=== PATIENT | female | born 1945 | race Caucasian/White ===

== ENCOUNTER 2018-08-03 17:25 | Emergency (ER) | payer MEDICARE, BC ==
[2018-08-03 18:17] VITALS: BP 132/93
--- NOTE | 2018-08-03 19:25 | UC ---
Skin Complaint HPI - HPI Summary HPI Summary: 72-year-old female comes in with a chief complaint of redness and tenderness at a skin biopsy site on her right thigh. She had the biopsy yesterday today when she took the bandage off she noticed the area was read. Also slightly tender to palpation. No drainage no fever no streaking. Feels well otherwise. - History of Current Complaint Chief Complaint: UCSkin Time Seen by Provider: 08/03/18 19:18 Stated Complaint: SOFT TISSUE Pain Intensity: 4 - Allergy/Home Medications Allergies/Adverse Reactions: Allergies Allergy/AdvReac Type Severity Reaction Status Date / Time warfarin [From Coumadin] Allergy Hives Verified 08/03/18 18:07 Home Medications: Home Medications Acetaminophen [Masophen] 500 mg PO Q12HR PRN 08/03/18 [History Confirmed ] PMH/Surg Hx/FS Hx/Imm Hx Previously Healthy: Yes Cardiovascular History: Hypertension - Surgical History Surgical History: Yes Surgery Procedure, Year, and Place: R mastectomy, L mastectomy. Hip replacement. abdominal surgery. retina repair L eye. cataract- bilateral. gastric bypass. bilateral feet surgery - Family History Known Family History: Positive: Non-Contributory - Social History Alcohol Use: None Substance Use Type: None Smoking Status (MU): Former Smoker Review of Systems All Other Systems Reviewed And Are Negative: Yes Constitutional: Positive: Negative Skin: Positive: Other - see hpi Eyes: Positive: Negative ENT: Positive: Negative Respiratory: Positive: Negative Cardiovascular: Positive: Negative Gastrointestinal: Positive: Negative Motor: Positive: Negative Neurovascular: Positive: Negative Musculoskeletal: Positive: Negative Neurological: Positive: Negative Psychological: Positive: Negative Is Patient Immunocompromised?: No Physical Exam Triage Information Reviewed: Yes Appearance: Well-Appearing, No Pain Distress, Well-Nourished Vital Signs: Initial Vital Signs Temp 98.7 F 08/03/18 18:09 Pulse 56 08/03/18 18:09 Resp 18 08/03/18 18:09 BP 132/93 08/03/18 18:09 Pulse Ox 97 08/03/18 18:09 Vital Signs Reviewed: Yes Eye Exam: Normal Eyes: Positive: Conjunctiva Clear Neck exam: Normal Neck: Positive: Supple Respiratory: Positive: No respiratory distress Musculoskeletal Exam: Normal Musculoskeletal: Positive: Strength Intact, ROM Intact Neurological Exam: Normal Neurological: Positive: Alert, Muscle Tone Normal Psychological Exam: Normal Psychological: Positive: Age Appropriate Behavior Skin: Positive: Other - The right anterior thigh there is a biopsy site. Skin is clean dry and intact. There is some erythema and tenderness to palpation in the area is no streaking. Course/Dx - Diagnoses Provider Diagnosis: Cellulitis Discharge - Sign-Out/Discharge Documenting (check all that apply): Patient Departure All imaging exams completed and their final reports reviewed: No Studies - Discharge Plan Condition: Stable Disposition: HOME Prescriptions: Cephalexin CAP* [Keflex CAP*] 500 mg PO QID #40 cap Patient Education Materials: Cellulitis (ED) Referrals: Reema Martin MD [Primary Care Provider] - Additional Instructions: FOLLOW UP WITH YOUR DOCTOR. GET RECHECKED FOR ANY WORSENING OF YOUR CONDITION; SPREAD OF INFECTION, FEVER, YOU FEEL ILL OR QUESTIONS OR CONCERNS. - Billing Disposition and Condition Condition: STABLE Disposition: Home
== END 2018-08-03 19:40 | disposition home or self-care (01) ==
LOC: UCEAST 17:25
DX: L03.90 Cellulitis, unspecified (principal); I10 Essential (primary) hypertension; Z88.8 Allergy status to other drugs, medicaments and biological substances; Z87.891 Personal history of nicotine dependence
CPT/HCPCS: 99212; G0463

== ENCOUNTER 2019-02-21 09:52 | Inpatient (IN) | payer MEDICARE, BC ==
[2019-02-21] MEDS ORDERED: Naloxone* 0.4 MG/ML 1 ML VIAL ONE (10:55)
[2019-02-21] MEDS ORDERED: Flumazenil* 0.1 MG/ML 5 ML MDV ONE (10:55)
[2019-02-21] MEDS ORDERED: Midazolam* 1 MG/ML 5 ML VIAL (5 MG) ONE ×2 (10:55→13:04)
[2019-02-21] MEDS ORDERED: fentaNYL* 50 MCG/ML 2 ML VIAL (100 MCG VIAL) ONE (10:55)
[2019-02-21] MEDS ORDERED: Lidocaine 2% VISCOUS* 15 ML UDC ONE (10:55)
[2019-02-21] MEDS ORDERED: Metoprolol Tartrate IV* 1 MG/ML 5 ML VIAL ONE (12:36)
[2019-02-21] MEDS ORDERED: Metoprolol Tartrate IV* 1 MG/ML 5 ML VIAL IV ONE (12:36)
[2019-02-21] MEDS ORDERED: Diltiazem IV push/loading dose 5 MG/ML 5 ML vial (25 mg) IV SLOW PU ONE (14:08)
[2019-02-21 14:54] LABS: ABS Eosinophils 0.2 10^3/ul (0-0.6); ABS Monocytes 0.4 10^3/ul (0-0.8); ABS Neutrophils 3.1 10^3/ul (1.5-7.7); Eosinophil % 3.1 %; Hematocrit 39 % (35-47); Hemoglobin 13.1 g/dL (12.0-16.0); Lymphocyte % 34.6 %; Mean Corpuscular HGB Conc 34 g/dL (31-36); Mean Corpuscular Hemoglobin 32 pg (27-31); Mean Corpuscular Volume 94 fL (80-97); Mean Platelet Volume 8.6 fL (7.4-10.4); Nucleated Red Blood Cells % 0.1; Platelet Count 176 10^3/uL (150-450); Red Blood Count 4.15 10^6 /uL (3.70-4.87); Red Cell Distribution Width 14 % (10-15); White Blood Count 5.7 10^3/uL (3.5-10.8)
[2019-02-21] MEDS ORDERED: Diltiazem IV VIAL* 125 MG in NS 0.9% 100 ML* 100 ML IV ONE (15:00)
[2019-02-21 15:04] LABS: Albumin 3.5 g/dL (3.2-5.2); Albumin/Globulin Ratio 1.8 (1-3); BUN/Creatinine Ratio 22.5 (8-20); Calcium 8.3 mg/dL (8.6-10.3); EGFR African American 97.6 (>60); EGFR Non-African American 80.7 (>60); Magnesium 1.6 mg/dL (1.9-2.7); Potassium 3.7 mmol/L (3.5-5.0); Total Bilirubin 0.8 mg/dL (0.2-1.0); Total Protein 5.5 g/dL (6.4-8.9)
--- NOTE | 2019-02-21 15:11 | HP ---
CRITICAL CARE ADMISSION NOTE: DATE OF ADMISSION: 02/21/19 HISTORY OF PRESENT ILLNESS: The patient is a 73-year-old female, past medical history of TIA, mainta ined on Eliquis, who was undergoing a IVÁN this afternoon electively with Dr. Silvestre, looking for pot ential clot. During the course of the IVÁN, which revealed good cardiac function and no evidence of t hrombosis, the patient did develop atrial fibrillation with rapid ventricular response. She became h ypotensive, was treated appropriately with fluids and negative chronotropes and is now being admitted to the intensive care unit for a diltiazem drip and hopefully return to sinus rhythm. She did under go a couple of attempts at DC cardioversion by Dr. Silvestre while she was still asleep. Hopefully, yesi hunter will chemically convert overnight while here in the ICU. The patient is seen at the bedside in the [facility]. She is awake, still coming out of her sedation, but is largely appropriate and is able to give history. She tells me she feels fine right now that she has been on Eliquis for about 2 years, it was started when she had some TIAs and apparently has had some scattered evidence o f PAF over the interim time period. PAST MEDICAL HISTORY: Significant for the aforementioned TIA and paroxysmal atrial fibrillation. Yesi hunter also has a history of right-sided breast cancer, treated with mastectomy in 1990. She had a gastri c bypass in 2003. She also has a remote history of alcoholism. She has been sober for 29-1/2 years. She also has 80-pack years to her credit. PAST SURGICAL HISTORY: Remarkable for the aforementioned gastric bypass as well as mastectomy as wel l as herniorrhaphy in 2017, left hip replacement also in 2017, tonsillectomy as a child. She has als o had some remote back surgery. MEDICATIONS: Her medication list at home as best as I can tell includes: 1. Eliquis 5 mg b.i.d. 2. BuSpar 15 mg daily. 3. P.r.n. metoprolol. 4. Assorted multivitamins and supplements. Med rec has not yet been done today or at least I am unable to find it. ALLERGIES: She has a drug allergy to WARFARIN. FAMILY HISTORY: Her mother of metastatic breast cancer at age 55, having been diagnosed at age 46. Father at age 83 of prostate cancer. She has a sister with breast cancer in her 40s. SOCIAL HISTORY: She tells me she smoked for approximately 40 years at 2 packs per day. I see slight ly less documented in a prior consultation, but she clearly told me today it was in the range of 80-p ack years and she has been sober for 29-1/2 years with her anniversary date for 30 years being September 11 of next year. REVIEW OF SYSTEMS: As detailed in HPI. Additionally, she denies any chest pain or shortness of jerry th. Reports a good exercise tolerance. Denies any recent bleeding, focal motor weakness, visual sam nge, headache, or neck stiffness. Denies productive cough, fever, or chills. PHYSICAL EXAMINATION GENERAL: She is a well-developed, robust white female, in no acute distress. VITAL SIGNS: Temperature at 36 degrees, heart rate currently at 130 and irregular, blood pressure at 90/70, respiratory rate in the low teens, saturating the mid 90s on nasal cannula. HEENT: She is normocephalic, atraumatic. Pupils are equal and reactive to light. NECK: Supple and nontender without JVD. LUNGS: Clear bilaterally. HEART: She has S1 and S2 irregular. ABDOMEN: Soft, nontender, nondistended with positive bowel sounds. EXTREMITIES: Lower extremities are without edema. NEUROLOGIC: She is alert and oriented and grossly nonfocal. DIAGNOSTIC STUDIES/LAB DATA: She has no recent laboratory evaluations. IVÁN by Dr. Silvestre's report look good with excellent cardiac function and no evidence of clot. ASSESSMENT AND PLAN: This is a 73-year-old female with past medical history of transient ischemic at tacks, maintained on Eliquis, was undergoing elective IVÁN, developed atrial fibrillation with rapid v entricular response. She does have a history of paroxysmal atrial fibrillation. She became hemodyna mically unstable, is now being admitted to the intensive care unit for diltiazem drip and ICU observa tion. I am dosing her with her Eliquis. We will perform a full med rec. Continue the balance of her outpatient medications. We will allow her to eat and hopefully, she will convert to sinus overnight tonight. Balance of any other cardiology's specific request, I will put to Dr. Silvestre. I have wri tten for diltiazem at 10 an hour after a 15 mg bolus. We will order electrolytes as well and make de anda re those are maximized. [id number]/[facility] #: [id number]
[2019-02-21 15:38] LABS: TSH (Thyroid Stimulating Horm) 3.1 mcIU/mL (0.34-5.60)
--- NOTE | 2019-02-21 17:30 | TEE ---
*[facility]* [place] [address] Fax #: [phone] Transesophageal Echocardiogram Patient: Tasha Brandon : 1945 Study Date: 02/21/2019 Age: 73 Gender: F HR: Height: 69 in /175.3 cm BSA: 1.94 m^2 Weight: 172.6 lb /78.5 kg BMI: 25.5 kg/m^2 *Angle Shear Operator: * Rachele Lilly RD *Referring Physician: * Helga Silvestre MD *Reading Physician: * Helga Silvestre MD Indications: TIA. History: PAF,PSVT,former smoker. Conclusions Summary: - Left ventricle: Systolic function is normal. The estimated ejection fraction is 55-60%. - Right ventricle: Systolic function is normal. - Left atrium: There is no left atrial appendage thrombus. - Atrial septum: No defect or patent foramen ovale is identified. - Mitral valve: There is trace to mild regurgitation. - Aortic valve: Lambl's excressence was noted. - Tricuspid valve: There is mild regurgitation. - Pulmonary arteries: Systolic pressure is within the normal range, 32 mmHg assuming an right atrium pressure of 3 mmHg. - No clear cut cardioembolic source identified on echocardiogram anatomy. - The patient developed atrial fibrillation during the procedure with a rapid ventricular rate. Study data: Diagnostic Transesophageal Echocardiogram Consent: The risks and benefits of the procedure, including alternatives were discussed with the patient and/or their health care auto service representative and written informed consent was obtained. Procedure: Initial setup: Intravenous access was obtained. Surface ECG leads, heart rate, heart rhythm, blood pressure measurements, pulse oximetric signals, and mainstream end-tidal CO2 tracings were monitored throughout the procedure. Sedation. Moderate sedation was administered by nursing staff. History and physical as well as labs were reviewed. An oral bite block was inserted for protection of oral dentition. The patient was placed in the left lateral decubitus position. A transesophageal probe was inserted by the attending cage loader. without difficultyTransesophageal echocardiography was performed, image quality was good, and all standard views were attempted within the limitations of patient tolerance and safety. Multiple 2D, color flow Doppler and spectral Doppler images were obtained. The transesophageal probe was removed. Location: Procedure room. Patient status: Outpatient. Study completion: The patient tolerated the procedure well. There were no complications. Administered medications: Midazolam, 9mg. Midazolam, 50mcg. Rhythm: Normal sinus rhythm. A-fib noted during study. Findings Left ventricle: The cavity size is normal. Systolic function is normal. The estimated ejection fraction is 55-60%. There is no evidence of a thrombus. Right ventricle: The cavity size is normal. Systolic function is normal. Ventricular septum: The ventricular septum is normal. Left atrium: The atrium is normal in size. The appendage is well visualized and of normal size. Emptying velocity is normal. There is no left atrial appendage thrombus. No spontaneous echo contrast is observed. Right atrium: The atrium is normal in size. There is no evidence of a thrombus in the atrial cavity or appendage. Atrial septum: No defect or patent foramen ovale is identified. An agiatated saline study was performed and results were negative. Mitral valve: The valve is structurally normal. There is no evidence of a vegetation. There is no evidence of stenosis. There is trace to mild regurgitation. Aortic valve: The valve is structurally normal. The valve is trileaflet. The leaflets are normal thickness. Cusp separation is normal. There is no evidence of a vegetation. There is no evidence of stenosis. There is no regurgitation. Lambl's excressence was noted. Tricuspid valve: The valve is structurally normal. There is no evidence of a vegetation. There is no evidence of stenosis. There is mild regurgitation. Pulmonic valve: The valve is structurally normal. There is no evidence of a vegetation. There is trace regurgitation. Aorta: The aorta is well visualized and normal size. The aortic root appears normal. The aortic arch appears normal. The ascending aorta appears normal. Pericardium: There is no pericardial effusion. No evidence of pleural fluid accumulation. Pulmonary arteries: Well visualized. Systolic pressure is within the normal range, 32 mmHg assuming an right atrium pressure of 3 mmHg. No ductal shunt is identified by Doppler. Systemic veins: Well visualized. Inferior vena cava: The vessel is normal in size. Pulmonary veins: Well visualized. The Pulmonary veins appear normal. 3 out of 4 seen. Measurements Aortic valve Value Ref Tricuspid valve Value Ref Romy diam, ED 2.1 cm ---- TR peak v 2.68 m/sec <=2.8 Romy diam/bsa, ED 1.1 cm/m^2 ---- Peak RV-RA grad, S 29 mm Hg ----- Max TR mackenzie 2.68 m/sec ----- Mitral valve Value Ref Peak E 0.72 m/sec ---- Aortic root Value Ref Peak A 0.55 m/sec ---- Root diam 3.2 cm <4.1 Decel time 257 ms ---- Root max diam, ED 3.2 cm <4.1 Peak grad, D 2.1 mm Hg ---- Peak E/A ratio 1.3 ---- Ascending aorta Value Ref AAo AP diam, S 3.6 cm ----- AAo AP diam/bsa, S 1.9 cm/m^2 ----- Legend: (L) and (H) santosh values outside specified reference range. Prepared and electronically signed by Helga Silvestre MD 02/21/2019 17:30
[2019-02-21] MEDS ORDERED: Potassium Chlor TAB* 20 MEQ TAB.ER PO ONE (17:40)
[2019-02-21] MEDS ORDERED: Magnesium Sulfate 2 GM IV* 2 GM/50 ML BAG IVPB ONE (17:41)
[2019-02-21 17:47] LABS: BUN/Creatinine Ratio 19.5 (8-20); EGFR African American 82.7 (>60); EGFR Non-African American 68.3 (>60); Magnesium 1.8 mg/dL (1.9-2.7); Potassium 4.6 mmol/L (3.5-5.0)
[2019-02-21] MEDS ORDERED: NS 0.9% 1000 ML** 1,000 ML IV ONE (17:49)
--- NOTE | 2019-02-21 18:01 | PN ---
Hospitalist Progress Note Date of Service: 02/21/19 Pt not put in ICU given bed shortage. Still on dilt drip in afib with HR low 100s. Noted that patient NPO for procedure and slightly elevated BUN/Cr. Will order 1 L IVF. She is also eating now. Magnesium still low so will order Mg IV and morning labs.
[2019-02-21] MEDS: Apixaban* 5 MG TAB PO SCH (20:05)
--- NOTE | 2019-02-21 20:14 | CARD ---
CC: Dr. Reema Martin CARDIOVERSION: DATE OF PROCEDURE: 02/21/19 PROCEDURE: Electrical cardioversion. PERFORMED BY: Dr. Helga Silvestre. PREPROCEDURE DIAGNOSIS: Atrial fibrillation with rapid ventricular rate. POSTPROCEDURE DIAGNOSIS: Atrial fibrillation with rapid ventricular rate. The patient had been in sinus rhythm and undergoing a transesophageal echo when she developed atrial fibrillation with a rapid ventricular rate. The procedure was completed. She was hemodynamically st able. Suctioning did not cardiovert her. Asking the patient to cough when she was more awake did not cardiovert her. She was feeling short of breath and so the decision was made to proceed with electr ical cardioversion, as she is on chronic Eliquis. DESCRIPTION OF PROCEDURE: AP patches were put on the chest wall. All of the patient's questions wer e answered. A time-out was called. The patient received an additional 3 mg of Versed and 25 mcg of fentanyl for sedation in addition to that, that she received for the transesophageal echo. 120 joule s of energy was delivered across the chest wall and was not successful cardioverting her. Then, 200 joules was delivered across the chest well with successful cardioversion for 1 or 2 beats and then sh e went back into AFib. CONCLUSION: Unsuccessful cardioversion. The patient was hemodynamically stable throughout the procedure and during recovery. [id number]/[facility] #: [id number]
[2019-02-22] MEDS: Diltiazem TAB* 60 MG PO SCH ×3 (01:30→12:12)
[2019-02-22 05:59] LABS: EGFR African American 93.1 (>60); EGFR Non-African American 76.9 (>60); Potassium 4.4 mmol/L (3.5-5.0)
[2019-02-22] MEDS: Apixaban* 5 MG TAB PO SCH (08:26)
--- NOTE | 2019-02-22 11:04 | CONS ---
CC: Dr. Martin; Hospitalist CARDIOLOGY CONSULTATION: DATE OF CONSULT: 02/21/19 REASON FOR CONSULTATION: Paroxysmal atrial fibrillation. CHIEF COMPLAINT: Recurrent strokes. HISTORY OF PRESENT ILLNESS: Tasha Brandon is a 73-year-old woman whom I consulted on 02/12/19. She had had a history of aphasia, recurrent TIAs, had been empirically put on Eliquis with resolution. According to the patient, no clear diagnosis of the etiology of her TIAs has been made, and she was s cheduled for IVÁN on 02/21/19. During the procedure, no cardioembolic source was identified. Her matt ble study was negative, but she went into atrial fibrillation mid study. Attempts were made to cardio vert her electrically and were unsuccessful. The patient denied any awareness, palpitations, racing of the heart, or any dysrhythmia. She had ney e very mild dyspnea. She said she has a history of palpitations but they did not feel like she was f eeling now where she is unaware. The decision was made to admit her for observation. PAST MEDICAL HISTORY: The patient has a past medical history of, 1. Atrial fibrillation in 2017. 2. TIA with memory lapses, losing time, recurrent, resolved with Eliquis. 3. Breast cancer, status post mastectomy and reconstruction in 1989. 4. History of chemotherapy with CHOP. 5. She had a second primary in 2007, status post chemo and on Femara. 6. Osteoporosis. 7. Osteoarthritis. 8. Anxiety. 9. Depression. 10. Basal cell carcinoma. PAST SURGICAL HISTORY: Includes: 1. Repair of spina bifida occulta as a young child. 2. Tonsillectomy. 3. Adenoidectomy. 4. Tubal ligation. 5. Cone biopsy. 6. Modified radical mastectomy in 1990. 7. Open gastric bypass in 2003. 8. Margo-en-Y. 9. Simple mastectomy left breast in 2007. 10. Breast implants in 2009 and redo breast implants in 2013. 11. Cataract removal. 12. Hip replacement in 2017. 13. Hernia repair in 2017. 14. Retinal laser in 2017. MEDICATIONS: Outpatient medications included: 1. Eliquis 5 mg b.i.d. 2. BuSpar 15 mg b.i.d. 3. Vitamin B12. 4. MultiVites. 5. Vitamin D. 6. Calcium. 7. Tylenol. 8. Melatonin 3 mg q.h.s. 9. Prolia 60 mg/mL q. Tuesday. 10. Metoprolol 25 mg p.r.n. palpitations. ALLERGIES: The patient is allergic to COUMADIN. FAMILY HISTORY: Mother had a history of metastatic breast cancer dying at age 55, diagnosed in age 4 6. Father with a history of prostate cancer. Sister with a history of breast cancer in her 40s. SOCIAL HISTORY: The patient is , retired social worker aide. Recently returned to [place] after 2 0 years in [place]. Former smoker, stopped in 1985. Recurring alcoholic, but sober since 1989. REVIEW OF SYSTEMS: Negative for palpitations. No recent neurological changes. Occasional episodes o f low energy, arthritis. PHYSICAL EXAM: On exam, the patient is a fit-appearing older woman, in no acute distress. Vitals (s tatus post 12 mg of Versed and 75 mcg of fentanyl): Blood pressure 90/70, heart rate 130 to 150, and oxygen saturation 98% with 2 L nasal cannula. Psychologically pleasant and cooperative. Neurologic ally, awake, alert, and oriented to person, place, and time. Grossly normal sensory and motor functi on in the upper and lower extremities. Normal gait. Skin: Warm, dry. No cyanosis or rashes. HEEN T: Pupils equal and round. Mucous membranes moist. Neck: Without increased JVP. Good carotid puls es. No audible bruits. Lungs are clear with good effort. No wheezes, rales, or rhonchi. Coronary: S1, S2. Irregularly irregular and tachycardic, but no murmurs. Abdomen: Active bowel sounds. So ft, nontender. No hepatomegaly. Lower extremities: Free of edema with warm and good distal pulses. DIAGNOSTIC STUDIES/LAB DATA: IVÁN done today showed normal ventricular function, mild mitral and tri cuspid insufficiency, no cardioembolic source. Labs: White count 5.7, hematocrit 39, platelets 176. Sodium 141, potassium 3.7, chloride 111, bicar b 23, BUN 16, creatinine 0.71, glucose 87, magnesium 1.6, AST 40, ALT 40, TSH 3.10. A 12-lead ECG shows atrial fibrillation with a rapid ventricular rate of 161 beats a minute, QRS axis 0, R prime V1 with normal interventricular conduction time, [address] depression in the lateral l alfonzo. She has voltage criteria for LVH. IMPRESSION AND PLAN: In summary, Ms. Brandon is 73-year-old woman with paroxysmal atrial fibrillation and atrial fibrillation now refractory to cardioversion, admitted and we will electrolyte replace he r. We can retry in the morning and consider antiarrhythmics, perhaps sotalol if QT interval okay. S he needs to be ruled out with serial troponins as well. [id number]/[facility] #: [id number]
[2019-02-22] MEDS ORDERED: Metoprolol Succinate XL TAB* 25 MG PO SCH (13:00)
[2019-02-22 17:00] VITALS: BP 105/61
--- NOTE | 2019-02-22 22:42 | DS ---
CC: Dr. Martin; Dr. Silvestre* DISCHARGE SUMMARY: DATE OF ADMISSION: 02/21/19 DATE OF DISCHARGE: 02/22/19 PROVIDER: VIRGEN Alfaro ATTENDING PHYSICIAN WHILE IN THE HOSPITAL: Dr. Patrick Billings* (dictated by VIRGEN Alfaro). PRIMARY CARE PROVIDER: Dr. Martin. OUTPATIENT FLIGHT AGENT: Dr. Silvestre. PRIMARY DIAGNOSIS: Atrial fibrillation with rapid ventricular rate, now rate controlled. SECONDARY DIAGNOSES: 1. History of transient ischemic attack. 2. Paroxysmal atrial fibrillation. 3. History of breast cancer, status post mastectomy. 4. Status post gastric bypass. 5. History of alcohol use disorder. 6. History of anxiety. 7. History of depression. 8. History of basal cell carcinoma. HISTORY OF PRESENT ILLNESS/HOSPITAL COURSE: Please see admitting history and physical for further details written by Dr. Florencio Keating. In brief, the patient was having an outpatient transesophageal echocardiography performed by Dr. Silvestre, when the patient started having atrial fibrillation with rapid ventricular response. Cardioversion was attempted by Dr. Silvestre per her report. This cardioversion was unsuccessful. This was on 02/21/19. The patient was then given a diltiazem drip and admitted to the ICU for observation during this time. Ultimately, her diltiazem drip was completed and she was converted to p.o. diltiazem. The patient converted to sinus rhythm on the diltiazem drip and she was then rate controlled. Since the Cardizem drip, her heart rate was maintained below her rate in the 90s. On the date of discharge, the patient was asymptomatic, not complaining of chest pain, difficulty breathing, palpitations or abdominal pain. She was feeling like her normal self. The patient was initially ordered to receive p.o. Cardizem, however, this was not administered by nursing due to mild hypotension. Ultimately the patient was started on metoprolol succinate and her blood pressure maintained and then it was normotensive and the patient did continue to be in sinus rhythm with good rate control. The patient had troponins that were negative x2 on the date of discharge. This case was discussed with Dr. Silvestre and she felt that the patient was safe for discharge. PHYSICAL EXAMINATION: General: Thin elderly female, lying upright in hospital bed, appearing comfortable, in no acute distress. ENT: Mucous membranes are moist. Neck: Supple. Lungs: Clear to auscultation throughout. Cardio: Regular rate and rhythm without murmurs, rubs or gallops. Abdomen: Soft, nontender, nondistended. Extremities: No clubbing, cyanosis or edema. Neuro: Alert and oriented x3. No focal deficits. DISCHARGE PLAN: DIET: Regular diet. ACTIVITY: May return to normal activity as tolerated. The patient is advised to return to the emergency department if she is experiencing difficulty breathing, palpitations, rapid heart rate, sustained chest pain, dizziness or lightheadedness or loss of consciousness. She is advised to follow up with Dr. Silvestre in the office on 03/02/19. Additionally, she is advised to follow up with her primary care provider regarding this hospital stay. She needs to follow up with Dr. Silvestre regarding the transesophageal echocardiography that was performed that caused this rapid ventricular response. On the date of discharge, Dr. Silvestre recommended potassium and magnesium supplements and metoprolol prescribed as below. DISCHARGE MEDICATIONS: New Medications: 1. Potassium chloride 10 mEq p.o. daily. 2. Magnesium oxide 400 mg p.o. daily. 3. Metoprolol succinate 25 mg p.o. daily. Continued home medications: 1. Eliquis 5 mg p.o. b.i.d. 2. Tylenol 325 p.o. q.4 hours p.r.n. pain. 3. Melatonin 3 mg p.o. at bedtime p.r.n. insomnia. 4. Vitamin B12 of 500 mcg p.o. daily. 5. Vitamin D 4000 units p.o. b.i.d. 6. BuSpar 15 mg p.o. b.i.d. 7. Multivitamins 1 cap p.o. daily. 8. Prolia 60 mg injections every 6 months. CONDITION ON DISCHARGE: Stable. DISPOSITION: Home. TIME SPENT: Approximately 45 minutes was spent on this discharge, approximately half of this time was spent evaluating the patient and discussing the plan of care. VIRGEN ALFARO [id number]/[facility] #: [id number] [facility] CENTERDelisa
== END 2019-02-22 18:15 | disposition home or self-care (01) | DRG 310 ==
LOC: CHICATH 09:52 → MEDTELE 15:43
PROVIDERS: ADMIT Specialist; ATTEND Internal Medicine
PROC: 5A2204Z Restoration of Cardiac Rhythm, Single (ICD-10-PCS; 2019-02-21)
PROC: B24BZZ4 Ultrasonography of Heart with Aorta, Transesophageal (ICD-10-PCS; principal; 2019-02-21 11:00)
DX: I48.0 Paroxysmal atrial fibrillation (principal); M81.0 Age-related osteoporosis without current pathological fracture; M19.90 Unspecified osteoarthritis, unspecified site; F41.9 Anxiety disorder, unspecified; F32.9 Major depressive disorder, single episode, unspecified; Z96.642 Presence of left artificial hip joint; Z90.13 Acquired absence of bilateral breasts and nipples; Z88.8 Allergy status to other drugs, medicaments and biological substances; Z80.3 Family history of malignant neoplasm of breast; Z80.42 Family history of malignant neoplasm of prostate; Z85.3 Personal history of malignant neoplasm of breast; Z92.21 Personal history of antineoplastic chemotherapy; Z85.828 Personal history of other malignant neoplasm of skin; Z98.51 Tubal ligation status; Z87.891 Personal history of nicotine dependence; Z98.84 Bariatric surgery status; Z86.73 Personal history of transient ischemic attack (TIA), and cerebral infarction without residual deficits; Z79.01 Long term (current) use of anticoagulants; Z98.49 Cataract extraction status, unspecified eye
CPT/HCPCS: 36415; 80048; 80053; 82330; 83735; 84100; 84443; 84484; 85025; 92960; 93005; 93312; 93325; 99156; 99157; J2250; J2310; J3010; J3475; J3490

== ENCOUNTER 2019-07-13 16:52 | Inpatient (IN) | payer MEDICARE, BC ==
[2019-07-13] MEDS ORDERED: NS 0.9% 1000 ML** 1,000 ML IV ONE ×2 (17:18→18:47)
[2019-07-13] MEDS ORDERED: Diltiazem IV BAG* D5W Premix 125 MG/125 ML BAG IV ONE (17:19)
[2019-07-13] MEDS ORDERED: Diltiazem IV push/loading dose 5 MG/ML 5 ML vial (25 mg) IV SLOW PU ONE (17:20)
[2019-07-13 17:47] LABS: ABS Basophils 0.1 10^3/ul (0-0.2); ABS Eosinophils 0.3 10^3/ul (0-0.6); ABS Lymphocytes 2.5 10^3/ul (1.0-4.8); ABS Monocytes 0.9 10^3/ul (0-0.8); ABS Neutrophils 5.2 10^3/ul (1.5-7.7); Eosinophil % 3.6 %; Hematocrit 44 % (35-47); Hemoglobin 15.3 g/dL (12.0-16.0); Lymphocyte % 27.6 %; Mean Corpuscular HGB Conc 35 g/dL (31-36); Mean Corpuscular Hemoglobin 32 pg (27-31); Mean Corpuscular Volume 92 fL (80-97); Mean Platelet Volume 8.5 fL (7.4-10.4); Nucleated Red Blood Cells % 0.1; Platelet Count 271 10^3/uL (150-450); Red Cell Distribution Width 14 % (10-15)
[2019-07-13 17:55] LABS: INR 1.09 (0.82-1.09)
[2019-07-13 17:58] LABS: Albumin/Globulin Ratio 1.5 (1-3); Calcium 9.4 mg/dL (8.6-10.3); EGFR African American 70.6 (>60); EGFR Non-African American 58.4 (>60); Globulin 2.7 g/dL (2-4); Magnesium 1.9 mg/dL (1.9-2.7); Potassium 4.2 mmol/L (3.5-5.0); Total Bilirubin 0.5 mg/dL (0.2-1.0); Total Protein 6.7 g/dL (6.4-8.9)
--- OUTSIDE RECORDS SUMMARY | 2019-07-13 18:01 | XMS REPORT | Continuity of Care Document ---
:1945 External Reference #:[id number] Author Name Leigh Garcia N.P. (transmitted by agent of provider Meghana Castillo) Address [address] [place] [address] Care Team Providers Name Role Phone Reema Martin M.D. - Family Medicine Care Team Information Apprentice Plant Attendant [facility] - General Care Team Information Apprentice Plant Attendant [phone] Acute Care Hospital Problems Active Problems Provider Date Paroxysmal atrial fibrillation Reema Martin MD Onset: 07/18/2018 Prosthetic arthroplasty of the hip Maria Isabel Fry M.D. Onset: 01/29/2019 Strain of rotator cuff capsule Maria Isabel Fry M.D. Onset: 01/29/2019 Paroxysmal supraventricular tachycardia Helga Silvestre M.D. Onset: 02/12/2019 Ostium secundum type atrial septal defect Helga Silvestre M.D. 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 Tablets Potassium Chloride 1 by mouth every Helga Silvestre, 03/20/2019 ER day M.D. 10Meq Tablets ER Buspirone HCL take one tablet 180tabs Reema Martin MD 11/23/2018 15mg by mouth twice a Tablets day Eliquis 1 by mouth twice 180tabs Reema Martin MD 5mg Tablets a day Vitamin B-12 1 by mouth every Unknown Natural day 500mcg Tablets Multi Complete daily Unknown Capsules Tylenol 2 tablets every 4 Unknown 325mg hours as needed Capsules for pain Melatonin 1 tab by mouth Unknown 3mg every night at Capsules bedtime prn Prolia 60 mg sc q6mon Unknown 60mg/ml Solution Caltrate 600+D Plus take one Unknown Minerals capsule/tablet by mouth twice daily [id number] Chewtabs History Medications Metoprolol Succinate 1 by mouth 90tabs I48.0 Helga Silvsetre M.D. 2018 - ER every day 04/06/2019 25mg Tablets ER 24HR Medications Administered in Office Medication SIG Qnty Indications Ordering Provider Date Prolia Injection, Denosumab, 1MG Nurse Visit A 03/12/2019 Injection Prolia Injection, Denosumab, 1MG Nurse Visit [place] 08/09/2018 Injection Immunizations Description No Information Available Vital Signs Date Vital Result Comment 06/29/2019 1:38pm Height 69 inches 5'9" Weight 178.00 lb without shoes Heart Rate 63 /min BP Systolic Sitting 106 mmHg LA BP Diastolic Sitting 72 mmHg LA BP Systolic Standing 102 mmHg LA BP Diastolic Standing 70 mmHg LA BMI (Body Mass Index) 26.3 kg/m2 Ejection Fraction NONE 06/05/2019 10:54am Height 69 inches 5'9" Weight 177.00 lb Heart Rate 62 /min BP Systolic Sitting 101 mmHg BP Diastolic Sitting 64 mmHg Body Temperature 97.5 F O2 % BldC Oximetry 97 % BMI (Body Mass Index) 26.1 kg/m2 Results Test Acquired Date Facility Test Result H/L Range Note Laboratory test 06/05/2019 [facility] Vitamin D <pending> finding [address]) [place] [address] [phone] Vitamin B12 And 06/05/2019 [facility] Vitamin B12 918 pg/mL High 180-914 [address] [place] [address] [phone] Folic Acid (Folate) > 20.00 ng/mL >3.99 CBC Auto 02/21/2019 [facility] White Blood 5.7 10^3/uL Normal 3.5-10.[address] [place] [address] [phone] Red Blood Count 4.15 10^6/uL Normal 3.70-4.87 Hemoglobin 13.1 g/dL Normal 12.0-16.0 Hematocrit 39 % Normal 35-47 Mean Corpuscular Volume 94 fL Normal 80-97 Mean Corpuscular Hemoglobin 32 pg High 27-31 Mean Corpuscular HGB Conc 34 g/dL Normal 31-36 Red Cell Distribution Width 14 % Normal 10-15 Platelet Count 176 10^3/uL Normal 150-450 Mean Platelet Volume 8.6 fL Normal 7.4-10.4 Abs Neutrophils 3.1 10^3/uL Normal 1.5-7.7 Abs Lymphocytes 2.0 10^3/uL Normal 1.0-4.8 Abs Monocytes 0.4 10^3/uL Normal 0-0.8 Abs Eosinophils 0.2 10^3/uL Normal 0-0.6 Abs Basophils 0.0 10^3/uL Normal 0-0.2 Abs Nucleated RBC 0.0 10^3/uL Granulocyte % 53.8 % Lymphocyte % 34.6 % Monocyte % 7.7 % Eosinophil % 3.1 % Basophil % 0.8 % Nucleated Red Blood Cells % 0.1 Comp Metabolic 02/21/2019 [facility] Sodium 141 mmol/L Normal 135-[address] [place] [address] [phone] Potassium 3.7 mmol/L Normal 3.5-5.0 Chloride 111 mmol/L Normal 101-111 Co2 Carbon Dioxide 23 mmol/L Normal 22-32 Anion Gap 7 mmol/L Normal 2-11 Glucose 87 mg/dL Normal 70-100 Blood Urea Nitrogen 16 mg/dL Normal 6-24 Creatinine 0.71 mg/dL Normal 0.51-0.95 BUN/Creatinine Ratio 22.5 High 8-20 Calcium 8.3 mg/dL Low 8.6-10.3 Total Protein 5.5 g/dL Low 6.4-8.9 Albumin 3.5 g/dL Normal 3.2-5.2 Globulin 2.0 g/dL Normal 2-4 Albumin/Globulin Ratio 1.8 Normal 1-3 Total Bilirubin 0.80 mg/dL Normal 0.2-1.0 Alkaline Phosphatase 60 U/L Normal 34-104 Alt 40 U/L Normal 7-52 Ast 40 U/L High 13-39 Egfr Non- 80.7 >60 Egfr 97.6 >60 2 Laboratory test 02/21/2019 [facility] Magnesium 1.6 mg/dL Low 1.9-2.[address] [place] [address] [phone] TSH (Thyroid Stim Horm) 3.10 mcIU/mL Normal 0.34-5.60 Laboratory test 01/29/2019 [facility] C Reactive 1.54 mg/L Normal <8.[address] [place] [address] [phone] CBC Auto Diff 01/29/2019 [facility] White Blood 6.9 Normal 3.5 -10.[address] Count 10^3/[place] [address] [phone] Red Blood Count 4.54 10^6/uL Normal 3.70-4.87 Hemoglobin 14.8 g/dL Normal 12.0-16.0 Hematocrit 43 % Normal 35-47 Mean Corpuscular Volume 94 fL Normal 80-97 Mean Corpuscular Hemoglobin 33 pg High 27-31 Mean Corpuscular HGB Conc 35 g/dL Normal 31-36 Red Cell Distribution Width 14 % Normal 10-15 Platelet Count 210 10^3/uL Normal 150-450 Mean Platelet Volume 8.6 fL Normal 7.4-10.4 Abs Neutrophils 4.0 10^3/uL Normal 1.5-7.7 Abs Lymphocytes 2.1 10^3/uL Normal 1.0-4.8 Abs Monocytes 0.5 10^3/uL Normal 0-0.8 Abs Eosinophils 0.2 10^3/uL Normal 0-0.6 Abs Basophils 0.1 10^3/uL Normal 0-0.2 Abs Nucleated RBC 0.0 10^3/uL Granulocyte % 57.1 % Lymphocyte % 30.6 % Monocyte % 7.8 % Eosinophil % 3.3 % Basophil % 1.2 % Nucleated Red Blood Cells % 0.1 CBC Auto 01/15/2019 [facility] White Blood 6.5 10^3/uL Normal 3.5-10.[address] [place] [address] [phone] Red Blood Count 4.48 10^6/uL Normal 3.70-4.87 Hemoglobin 14.1 g/dL Normal 12.0-16.0 Hematocrit 42 % Normal 35-47 Mean Corpuscular Volume 93 fL Normal 80-97 Mean Corpuscular Hemoglobin 31 pg Normal 27-31 Mean Corpuscular HGB Conc 34 g/dL Normal 31-36 Red Cell Distribution Width 14 % Normal 10-15 Platelet Count 223 10^3/uL Normal 150-450 Mean Platelet Volume 8.8 fL Normal 7.4-10.4 Abs Neutrophils 3.2 10^3/uL Normal 1.5-7.7 Abs Lymphocytes 2.4 10^3/uL Normal 1.0-4.8 Abs Monocytes 0.6 10^3/uL Normal 0-0.8 Abs Eosinophils 0.2 10^3/uL Normal 0-0.6 Abs Basophils 0.1 10^3/uL Normal 0-0.2 Abs Nucleated RBC 0.0 10^3/uL Granulocyte % 48.8 % Lymphocyte % 37.1 % Monocyte % 9.6 % Eosinophil % 3.3 % Basophil % 1.2 % Nucleated Red Blood Cells % 0.1 Laboratory 01/15/2019 [facility] TSH (Thyroid 1.64 Normal 0.34 -5.[address] Stim Horm) mcIU/[place] [address] [phone] Basic 01/15/2019 [facility] Sodium 140 mmol/L Normal 135-[address] [place] [address] [phone] Potassium 4.3 mmol/L Normal 3.5-5.0 Chloride 105 mmol/L Normal 101-111 Co2 Carbon Dioxide 27 mmol/L Normal 22-32 Anion Gap 8 mmol/L Normal 2-11 Glucose 77 mg/dL Normal 70-100 Blood Urea Nitrogen 22 mg/dL Normal 6-24 Creatinine 1.14 mg/dL High 0.51-0.95 BUN/Creatinine Ratio 19.3 Normal 8-20 Calcium 9.5 mg/dL Normal 8.6-10.3 Egfr Non- 46.7 >60 Egfr 56.5 >60 3 Laboratory test 01/15/2019 [facility] Vitamin D 73.2 ng/mL High 20-50 [address]) [place] [address] [phone] 1 Normal Range 180 to 914 Indeterminate Range 145 to 180 Deficient Range <145 2 Because ethnic data is not always readily available, this report includes an eGFR for both -Americans and non- Americans. The National Kidney Disease Education Program (NKDEP) does not endorse the use of the MDRD equation for patients that are not between the ages of 18 and 70, are , have extremes of body size, muscle mass, or nutritional status, or are non- or non-. According to the National Kidney Foundation, irrespective of diagnosis, the stage of the disease is based on the level of kidney function: Stage Description GFR(mL/min/1.73 m(2)) 1 Kidney damage with normal or decreased GFR 90 2 Kidney damage with mild decrease in GFR 60-89 3 Moderate decrease in GFR 30-59 4 Severe decrease in GFR 15-29 5 Kidney failure <15 (or dialysis) 3 Because ethnic data is not always readily available, this report includes an eGFR for both -Americans and non- Americans. The National Kidney Disease Education Program (NKDEP) does not endorse the use of the MDRD equation for patients that are not between the ages of 18 and 70, are , have extremes of body size, muscle mass, or nutritional status, or are non- or non-. According to the National Kidney Foundation, irrespective of diagnosis, the stage of the disease is based on the level of kidney function: Stage Description GFR(mL/min/1.73 m(2)) 1 Kidney damage with normal or decreased GFR 90 2 Kidney damage with mild decrease in GFR 60-89 3 Moderate decrease in GFR 30-59 4 Severe decrease in GFR 15-29 5 Kidney failure <15 (or dialysis) 4 Total 25-Hydroxyvitamin D2 and D3 (25-OH-VitD) <10 ng/mL (severe deficiency) 10-19 ng/mL (mild to moderate deficiency) 20-50 ng/mL (optimum levels) 51-80 ng/mL (increased risk of hypercalciuria) >80 ng/mL (toxicity possible) Procedures Date Code Description Status 06/29/2019 71026 EKG Tracing & Interpretation Completed 04/12/2019 99976 EKG Tracing & Interpretation Completed 04/06/2019 14850 EKG Tracing & Interpretation Completed 03/12/2019 46911 Admin Of Inj Completed 03/08/2019 704100952 Bone Mineral Density Test Completed 03/02/2019 81081 Stress Test Completed 02/22/2019 58185 EKG, Interpretation Only Completed 02/21/2019 94169 Color Flow Doppler/Interp & Reprt Completed 02/21/2019 67338 Pulse Wave/Continuous-Interp.RPT Completed 02/21/2019 79716 Echocardiography, Transesophageal, Real Time W/Image Completed 2D W/W/O M-M 02/21/2019 21918 EKG, Interpretation Only Completed 02/21/2019 78575 Cardioversion Completed 02/12/2019 08317 EKG Tracing & Interpretation Completed 01/15/2019 94656 EKG Tracing & Interpretation Completed 10/30/2014 [id number] Colonoscopy Completed Medical Devices Description No Information Available Encounters Type Date Location Provider Dx Diagnosis Office Visit 05/03/2019 [facility] Renay Aakash, R07.89 [facility] Paroxys[facility] fibrillation Office Visit 04/12/2019 4:20p [facility] Helga Silvestre I48.0 Paroxysmal atrial Of [facility] M.D. fibrillation H54.7 Unspecified visual loss G45.9 Transient cerebral ischemic attack, unspecified Office Visit 04/06/2019 8:40a [facility] Helga Silvestre I48.0 Paroxysmal atrial Of [facility] M.D. fibrillation R19.7 Diarrhea, unspecified Z86.73 Prsnl hx of TIA (TIA), and cereb infrc w/o resid deficits Q21.1 Atrial septal defect Office Visit 03/14/2019 [facility] Marysol M81.0 Age-related 2:30p Clinic of Jude Hernandez MD osteoporosis w/o current pathological fracture Office Visit 03/07/2019 [facility] Marysol M81.0 Age-related 1:50p Clinic of Jude Hernandez MD osteoporosis w/o current pathological fracture Office Visit 02/22/2019 [facility] Cornelia I48.0 Paroxysmal atrial 10:36a [facility]oc,[facility] Morse, PAIsmaelC fibrillation Hospitalists Z86.73 Prsnl hx of TIA (TIA), and cereb infrc w/o resid deficits Z85.3 Personal history of malignant neoplasm of breast Z98.84 Bariatric surgery status Z86.59 Personal history of other mental and behavioral disorders Office Visit 02/21/2019 10:36a [facility] Florencio Keating, I48.0 Paroxysmal atrial M.D. fibrillation Z86.73 Prsnl hx of TIA (TIA), and cereb infrc w/o resid deficits Office Visit 02/21/2019 11:00a [facility] Helga Silvestre, I48.0 Paroxysmal atrial Of [facility] M.D. fibrillation Z86.73 Prsnl hx of TIA (TIA), and cereb infrc w/o resid deficits Office Visit 02/12/2019 1:00p [facility] Helga Silvestre I48.91 Unspecified atrial Cardiology Of M.D. fibrillation [facility] I47.1 Supraventricular tachycardia I69.320 Aphasia following cerebral infarction Office Visit 02/09/2019 11:15a [facility] Maria Isabel Fry, M25.552 Pain in left at [facility].D hip Z96.642 Presence of left artificial hip joint Office Visit 01/29/2019 10:30a [facility] Maria Isabel Fry M25.552 Pain in left at [facility].D. hip Z96.642 Presence of left artificial hip joint M25.512 Pain in left shoulder S46.012A Strain of musc/tend the rotator cuff of left shoulder, init M75.42 Impingement syndrome of left shoulder Office Visit 01/15/2019 1:40p [facility] Reema Martin MD M25.552 Pain in left Medicine - [facility] hip I48.0 Paroxysmal atrial fibrillation R29.6 Repeated falls M81.0 Age-related osteoporosis w/o current pathological fracture R00.1 Bradycardia, unspecified Assessments Date Code Description Provider 06/29/2019 I48.0 Paroxysmal atrial fibrillation Leigh SHoang Garcia, N.P. 06/29/2019 R06.00 Dyspnea, unspecified Leigh S. Jose, N.P. 06/29/2019 R94.31 Abnormal electrocardiogram [ECG] [EKG] Leigh Garcia, N.P. 06/29/2019 Q21.1 Atrial septal defect Leigh Garcia, N.P. 06/29/2019 Z86.73 Personal history of transient ischemic Leigh S. Jose, N.P. attack (TIA), and cerebral infarction without residual deficits 06/05/2019 Z00.00 Encounter for general adult medical Karmen Montelongo MD examination without abnormal findings 06/05/2019 I48.0 Paroxysmal atrial fibrillation Karmen Montelongo MD 06/05/2019 M81.0 Age-related osteoporosis without current Karmen Montelongo MD pathological fracture 06/05/2019 Z98.84 Bariatric surgery status Karmen Montelongo MD 06/05/2019 Z23 Encounter for immunization Karmen Montelongo MD 06/05/2019 Z85.3 Personal history of malignant neoplasm of Karmen Montelongo MD breast 06/05/2019 F41.9 Anxiety disorder, unspecified Karmen Montelongo MD 05/03/2019 R07.89 Other chest pain Renay Finn MD 05/03/2019 I48.0 Paroxysmal atrial fibrillation Renay Finn MD 04/12/2019 I48.0 Paroxysmal atrial fibrillation Helga Silvestre M.D. 04/12/2019 H54.7 Unspecified visual loss Helga Silvestre M.D. 04/12/2019 G45.9 Transient cerebral ischemic attack, Helga Silvestre M.D. unspecified 04/06/2019 I48.0 Paroxysmal atrial fibrillation Helga Silvestre M.D. 04/06/2019 R19.7 Diarrhea, unspecified Helga Silvestre M.D. 04/06/2019 Z86.73 Personal history of transient ischemic Helga Silvestre M.D. attack (TIA), and cerebral infarction without residual deficits 04/06/2019 Q21.1 Atrial septal defect Helga Silvestre M.D. 03/14/2019 M81.0 Age-related osteoporosis without current Marysol Radloff, MD pathological fracture 03/12/2019 M81.0 Age-related osteoporosis without current Nurse Visit A pathological fracture 03/07/2019 M81.0 Age-related osteoporosis without current Marysol Hernandez MD pathological fracture 03/02/2019 Z86.73 Personal history of transient ischemic Helga Silvestre M.D. attack (TIA), and cerebral infarction without residual deficits 02/22/2019 R94.31 Abnormal electrocardiogram [ECG] [EKG] Chuy Conrad M.D. 02/22/2019 I48.0 Paroxysmal atrial fibrillation Cornelia O'allan, PA-C 02/22/2019 Z86.73 Personal history of transient ischemic Cornelia O'allan, PA -C attack (TIA), and cerebral infarction without residual deficits 02/22/2019 Z85.3 Personal history of malignant neoplasm of Cornelia O'allan, PA-C breast 02/22/2019 Z98.84 Bariatric surgery status Cornelia O'allan, PA-C 02/22/2019 Z86.59 Personal history of other mental and Cornelia O'allan, PA-C behavioral disorders 02/21/2019 R00.1 Bradycardia, unspecified Chuy Conrad M.D. 02/21/2019 I48.0 Paroxysmal atrial fibrillation Florencio Keating M.D. 02/21/2019 Z86.73 Personal history of transient ischemic Florencio Keating M.D. attack (TIA), and cerebral infarction without residual deficits 02/21/2019 I48.0 Paroxysmal atrial fibrillation Helga Silvestre M.D. 02/21/2019 Z86.73 Personal history of transient ischemic Helga Silvestre M.D. attack (TIA), and cerebral infarction without residual deficits 02/12/2019 I48.91 Unspecified atrial fibrillation Helga Silvestre M.D. 02/12/2019 I47.1 Supraventricular tachycardia Helga Silvestre M.D. 02/12/2019 I69.320 Aphasia following cerebral infarction Helga Silvestre M.D. 02/09/2019 M25.552 Pain in left hip Maria Isabel Fry M.D. 02/09/2019 Z96.642 Presence of left artificial hip joint Maria Isabel Ang, M.D. 01/29/2019 M25.552 Pain in left hip Maria Isabel Fry M.D. 01/29/2019 Z96.642 Presence of left artificial hip joint Maria Isabel Fry M.D. 01/29/2019 M25.512 Pain in left shoulder Maria Isabel Fry M.D. 01/29/2019 S46.012A Strain of muscle(s) and tendon(s) of the Maria Isabel Fry M.D. rotator cuff of left shoulder, initial encounter 01/29/2019 M75.42 Impingement syndrome of left shoulder Maria Isabel Fry M.D. 01/15/2019 M25.552 Pain in left hip Reema Martin MD 01/15/2019 I48.0 Paroxysmal atrial fibrillation Reema Martin MD 01/15/2019 R29.6 Repeated falls Reema Martin MD 01/15/2019 M81.0 Age-related osteoporosis without current Reema Martin MD pathological fractu 01/15/2019 R00.1 Bradycardia, unspecified Reema Martin MD Plan of Treatment Future Appointment(s):10/29/2019 3:40 pm - Helga Silvestre M.D. at [facility]12/10/2019 10:40 am - Reema Martin MD at [facility] Internal Medicine - [facility]08/20/2019 3:00 pm - Bright Hernandez MD at [facility] Gkeolbswiny74/10/2020 - Leigh Garcia, N.P.I48.0 Paroxysmal atrial fibrillationNew Labs:Comp Metabolic Panel, Ordered: 06/29/19Magnesium, Ordered: 06/29/19Follow up:OV LS 4-6mo EKGRecommendations:I recommend purchasing Kardia by [employer] YOu can use this to check your spangler rhythm during these episodes If episodes increase in frequency/duration let us know. I will discuss with Dr. Silvestre possibility of increasing Sotalol. There is always the possibility of an ablation to try to get ride of the afib.R06.00 Dyspnea, smoinvywhuiL57.31 Abnormal electrocardiogram [ECG] [EKG]Q21.1 Atrial septal fdogivC48.73 Personal history of transient ischemic attack (TIA), and cerebral infarction without residualdeficits Functional Status Description No Information Available Mental Status Description No Information Available Referrals Refer to Reason for Referral Status Appt Date Marysol Hernandez MD Discuss bone density medication and treatment Sent 03/07 [facility] [address] [place] [address] [phone] Helga Silvestre MD pt with recent episodes of symptomatic A. Fib, Sent 2018 apparently [facility] [address] [place] [address] [phone] Maria Isabel Fry MD pt with Left total hip replacement in 2017, now Sent 01/29 complains of anterior hip pain with going up and down stairs [address] [facility] [place] [address] [place] [address] [phone]
--- OUTSIDE RECORDS SUMMARY | 2019-07-13 18:01 | XMS REPORT | Continuity of Care Document ---
:1945 External Reference #:[id number] Author Name Lennox Oswald M.D. Address [address] [place] [address] Care Team Providers Name Role Phone Reema Martin MD - Internal Medicine Care Team Information Slag Mixer Lavelle Armas M.D. - Oncology Care Team Information Slag Mixer Bright Hernandez M.D. - Pediatric Care Team Information Slag Mixer Dermatology Problems Active Problems Provider Date Atrial fibrillation Onset: Anxiety Onset: Personal history of primary malignant neoplasm of breast Onset: Social History Type Date Description Comments Sex Unknown ETOH Use Has consumed alcohol in the past Tobacco Use Start: Unknown End: Unknown Patient is a former smoker Smoking Status Reviewed: 05/22/19 Patient is a former smoker Allergies, Adverse Reactions, Alerts Active Allergies Reaction Severity Comments Date Warfarin 10/19/2018 Coumadin 10/19/2018 Seasonal Mild 05/22/2019 Medications Active Medications SIG Qnty Indications Ordering Provider Date Reema Ty MD 5mg Tablets Buspirone HCL Unknown 15mg Tablets Metoprolol Tartrate Reema Martin MD 25mg Tablets Multi Vitamin Daily Unknown Tablets Calcium Unknown Metoprolol Succinate Take One Tablet Unknown ER Once Daily 25mg Tablets ER 24HR Magnesium Unknown 500mg Tablets Prolia 1 injection every 6 Unknown 60mg/ml Soln months Prefill Syringe Vitamin B12 Unknown 3000mcg/ML Liquid Immunizations Description No Information Available Vital Signs Description No Information Available Results Description No Information Available Procedures Description No Information Available Medical Devices Description No Information Available Encounters Description No Information Available Assessments Date Code Description Provider 05/22/2019 H04.123 Dry eye syndrome of bilateral lacrimal Lennox Oswald M.D. glands 05/22/2019 H35.372 Puckering of macula, left eye Lennox Oswald M.D. 05/22/2019 H33.312 Horseshoe tear of retina without Lennox Oswald M.D. detachment, left eye Plan of Treatment Future Appointment(s):10/25/2019 9:30 am - Lennox Oswald M.D. at Jason Covarrubias MD, 05/22/2019 - Lennox Oswald M.D.H04.123 Dry eye syndrome of bilateral lacrimal glandsComments:Smoking can increase the risk of developing or worsening any eye related disease, as well as affect your overall health. If you are a smoker, we strongly recommend that you quit.If you are not a smoker , we strongly recommend that you do not start. Both of your eyes appear to be dry. Use artificial tears as directed. You can use the tears more often if you are reading a book or are on the computer,as we tend to blink less, making our eyes dry out more.[facility] offers a few items in our optical department to help alleviate dry eye symptoms. USE THE ARTIFICAL TEARS 3-4 TIMES A DAYTO BOTH EYES. SOME BRANDS I RECOMMEND ARE SYSTANE OR REFRESH.YOU CAN TRY TO USE WARM COMPRESSES(RICE BAG) FOR 3-5 MINUTES BEFORE BEDTIME FOR BOTH EYES.H35.372 Puckering of macula, left eyeComments:A Macular Pucker is a wrinkling of the retina tissue. It can cause distortion in your vision. Pleasecall the office if you notice a decrease or new distortion in your vision before then.Follow up:As scheduled You can expect to have your eyes dilated at your next visit. If Dr. Oswald orders any additional testing, it may require extra time. We recommend that you bring sunglasses, as dilation drops often make you light sensitive until they wear off. We always recommend you bring someone to drive you home if you are uncomfortable driving with your eyes dilated. If you have any questions before your next visit, feel free to call our office at .H33.256 Horseshoe tear of retina without detachment , left eyeComments:The area in the left retina that was treated for a hole/tear looks stable. I do not see any new holes or tears in your left retina at this time. If you notice any new flashes of light or a sudden onset of floaters in your vision, please give our office a call immediately to schedule an appointment. Functional Status Description No Information Available Mental Status Description No Information Available Referrals Description No Information Available
--- OUTSIDE RECORDS SUMMARY | 2019-07-13 18:01 | XMS REPORT | Continuity of Care Document ---
:1945 External Reference #:[id number] Author Name Leigh Garcia N.P. (transmitted by agent of provider Meghana Castillo) Address [address] [place] [address] Care Team Providers Name Role Phone Reema Martin M.D. - Family Medicine Care Team Information Manufacturing Engineering Manager [facility] - General Care Team Information Manufacturing Engineering Manager Acute Care Hospital Problems Active Problems Provider [...] Unknown Minerals capsule/tablet by mouth twice daily [id number] Chewtabs History Medications Metoprolol Succinate 1 by mouth 90tabs I48.0 Helga Silvestre M.D. 2018 - ER every day 04/06/2019 25mg Tablets ER 24HR Medications Administered in Office Medication SIG Qnty Indications Ordering Provider Date Prolia Injection, Denosumab, 1MG Nurse Visit A 03/12/2019 Injection Prolia Injection, Denosumab, 1MG Nurse Visit [place] 08/09/2018 Injection Immunizations Description No Information Available [...] Result H/L Range Note Laboratory test 06/05/2019 [facility] Vitamin D <pending> finding [address] Total 25(Oh) [place] [address] [phone] Vitamin B12 And 06/05/2019 [facility] Vitamin B12 918 pg/mL High 180-914 [address] [place] [address] [phone] Folic Acid (Folate) > 20.00 ng/mL >3.99 CBC Auto 02/21/2019 [facility] White Blood 5.7 10^3/uL Normal 3.5-10.[address] [place] [address] [phone] Red Blood Count 4.15 10^6/uL Normal 3.70-4.87 [...] Blood Cells % 0.1 Comp Metabolic 02/21/2019 [facility] Sodium 141 mmol/L Normal 135-[address] [place] [address] [phone] Potassium 3.7 mmol/L Normal 3.5-5.0 Chloride 111 [...] Egfr 97.6 >60 2 Laboratory test 02/21/2019 [facility] Magnesium 1.6 mg/dL Low 1.9-2.[address] [place] [address] [phone] TSH (Thyroid Stim Horm) 3.10 mcIU/mL Normal 0.34-5.60 Laboratory test 01/29/2019 [facility] C Reactive 1.54 mg/L Normal <8.[address] [place] [address] [phone] CBC Auto Diff 01/29/2019 [facility] White Blood 6.9 Normal 3.5 -10.[address] Count 10^3/[place] [address] [phone] Red Blood Count 4.54 10^6/uL Normal 3.70-4.87 [...] Blood Cells % 0.1 CBC Auto 01/15/2019 [facility] White Blood 6.5 10^3/uL Normal 3.5-10.[address] [place] [address] [phone] Red Blood Count 4.48 10^6/uL Normal 3.70-4.87 [...] Red Blood Cells % 0.1 Laboratory 01/15/2019 [facility] TSH (Thyroid 1.64 Normal 0.34 -5.[address] Stim Horm) mcIU/[place] [address] [phone] Basic 01/15/2019 [facility] Sodium 140 mmol/L Normal 135-[address] [place] [address] [phone] Potassium 4.3 mmol/L Normal 3.5-5.0 Chloride 105 mmol/L Normal 101-111 Co2 Carbon Dioxide 27 mmol/L Normal 22-32 Anion Gap 8 mmol/L Normal 2-11 Glucose 77 mg/dL Normal 70-100 Blood Urea Nitrogen 22 mg/dL Normal 6-24 Creatinine 1.14 mg/dL High 0.51-0.95 BUN/Creatinine Ratio 19.3 Normal 8-20 Calcium 9.5 mg/dL Normal 8.6-10.3 Egfr Non- 46.7 >60 Egfr 56.5 >60 3 Laboratory test 01/15/2019 [facility] Vitamin D 73.2 ng/mL High 20-50 [address] Total 25(Oh) [place] [address] [phone] 1 Normal Range 180 to 914 Indeterminate [...] possible) Procedures Date Code Description Status 06/29/2019 38639 EKG Tracing & Interpretation Completed 04/12/2019 55592 EKG Tracing & Interpretation Completed 04/06/2019 82708 EKG Tracing & Interpretation Completed 03/12/2019 11586 Admin Of Inj Completed 03/08/2019 [id number] Bone Mineral Density Test Completed 03/02/2019 08969 Stress Test Completed 02/22/2019 38115 EKG, Interpretation Only Completed 02/21/2019 31431 Color Flow Doppler/Interp & Reprt Completed 02/21/2019 95814 Pulse Wave/Continuous-Interp.RPT Completed 02/21/2019 45826 Echocardiography, Transesophageal, Real Time W/Image Completed 2D W/W/O M-M 02/21/2019 08013 EKG, Interpretation Only Completed 02/21/2019 67968 Cardioversion Completed 02/12/2019 19970 EKG Tracing & Interpretation Completed 01/15/2019 81736 EKG Tracing & Interpretation Completed 10/30/2014 [id number] Colonoscopy Completed Medical Devices Description No Information Available Encounters Type Date Location Provider Dx Diagnosis Office Visit 06/29/2019 [facility] Leigh Garcia, I48.0 Paroxysmal atrial 2:00p Of Feed Manager N.P. fibrillation R06.00 Dyspnea, unspecified R94.31 Abnormal electrocardiogram [ECG] [EKG] Q21.1 Atrial septal defect Z86.73 Prsnl hx of TIA (TIA), and cereb infrc w/o resid deficits Office Visit 05/03/2019 3:00p [facility] Renay Finn, R07.89 Other chest Medicine - [facility] MD pain I48.0 Paroxysmal atrial fibrillation Office Visit 04/12/2019 4:20p [facility] Helga Silvestre, I48.0 Paroxysmal atrial Of Feed Manager M.D. fibrillation H54.7 Unspecified visual loss G45.9 Transient cerebral ischemic attack, unspecified Office Visit 04/06/2019 8:40a [facility] Helga Silvestre, I48.0 Paroxysmal atrial Of Feed Manager [facility] M.D. fibrillation R19.7 Diarrhea, unspecified Z86.73 Prsnl hx of TIA (TIA), and cereb infrc w/o resid deficits Q21.1 Atrial septal defect Office Visit 03/14/2019 [facility] M81.0 Age-related 2:30p [facility] of [facility] MD David osteoporosis w/o current pathological fracture Office Visit 03/07/2019 [facility] M81.0 Age-related 1:50p [facility] of [facility] MD David osteoporosis w/o current pathological fracture Office Visit 02/22/2019 [facility] Cornelia I48.0 Paroxysmal atrial 10:36a dg Godoy PA-C fibrillation Hospitalists Z86.73 Prsnl hx of TIA (TIA), and cereb infrc w/o resid deficits Z85.3 Personal history of malignant neoplasm of breast Z98.84 Bariatric surgery status Z86.59 Personal history of other mental and behavioral disorders Office Visit 02/21/2019 10:36a [facility] Florencio Keating, I48.0 Paroxysmal atrial M.D. fibrillation Z86.73 Prsnl hx of TIA (TIA), and cereb infrc w/o resid deficits Office Visit 02/21/2019 11:00a [facility] Helga Silvestre, I48.0 Paroxysmal atrial Of [facility] AT [facility] M.D. fibrillation Z86.73 Prsnl hx of TIA (TIA), and cereb infrc w/o resid deficits Office Visit 02/12/2019 1:00p [facility] Helga Silvestre I48.91 Unspecified atrial Cardiology Of M.D. fibrillation [facility] I47.1 Supraventricular tachycardia I69.320 Aphasia following cerebral infarction Office Visit 02/09/2019 11:15a [facility] Maria Isabel Fry, M25.552 Pain in left at [place] M.D. hip Z96.642 Presence of left artificial hip joint Office Visit 01/29/2019 10:30a [facility] Maria Isabel Fry, M25.552 Pain in left at [place] M.D. hip Z96.642 Presence of left artificial hip joint M25.512 Pain in left shoulder S46.012A Strain of musc/tend the rotator cuff of left shoulder, init M75.42 Impingement syndrome of left shoulder Office Visit 01/15/2019 1:40p [facility] Internal Reema Martin MD M25.552 Pain in left Medicine - [facility] hip I48.0 Paroxysmal atrial fibrillation R29.6 Repeated falls M81.0 Age-related osteoporosis w/o current pathological fracture R00.1 Bradycardia, unspecified Assessments Date Code Description Provider 06/29/2019 I48.0 Paroxysmal atrial fibrillation Leigh S. Jose, N.P. 06/29/2019 R06.00 Dyspnea, unspecified Leigh S. Foster, N.P. 06/29/2019 R94.31 Abnormal electrocardiogram [ECG] [EKG] Leigh SHoang Garcia, N.P. 06/29/2019 Q21.1 Atrial septal defect Leigh SHoang Garcia, N.P. 06/29/2019 Z86.73 Personal history of [...] 03/14/2019 M81.0 Age-related osteoporosis without current Marysol Hernandez MD pathological fracture 03/12/2019 M81.0 Age-related osteoporosis without current Nurse Visit A pathological fracture 03/07/2019 M81.0 Age-related osteoporosis without current Marysol Hernandez MD pathological fracture 03/02/2019 Z86.73 Personal history of transient ischemic Helga Silvestre M.D. attack (TIA), and cerebral infarction without residual deficits 02/22/2019 R94.31 Abnormal electrocardiogram [ECG] [EKG] Chuy Conrad M.D. 02/22/2019 I48.0 Paroxysmal atrial fibrillation Cornelia O'allan PA-C 02/22/2019 Z86.73 Personal history of transient ischemic Cornelia Felice'allan PA -C attack (TIA), and cerebral infarction without residual deficits 02/22/2019 Z85.3 Personal history of malignant neoplasm of Cornelia Felice'allan PA-C breast 02/22/2019 Z98.84 Bariatric surgery status Cornelia O'allan PA-C 02/22/2019 Z86.59 Personal history of other mental and Cornelia Felice'allan, PA-C behavioral disorders 02/21/2019 R00.1 Bradycardia, unspecified [...] hip joint Maria Isabel Fry M.D. 01/29/2019 M25.552 Pain in left hip [...] 3:40 pm - Helga Silvestre M.D. at [facility]12/10/2019 10:40 am - Reema Martin MD at [facility] Internal Medicine - [facility]08/20/2019 3:00 pm - Bright Hernandez MD at [facility] Cwbsbhvpmcy01/10/2020 - Leigh Garcia N.P.I48.0 Paroxysmal atrial fibrillationNew Labs:Comp Metabolic Panel, [...] to get ride of the afib.R06.00 Dyspnea, iddrfhxqfpsF52.31 Abnormal electrocardiogram [ECG] [EKG]Q21.1 Atrial septal nspawfK88.73 Personal history of transient ischemic attack (TIA), and cerebral infarction without residualdeficits Functional Status Description No Information Available Mental Status Description No Information Available Referrals Refer to Reason for Referral Status Appt Date Marysol Hernandez MD Discuss bone density medication and treatment Sent 03/07 [facility] [address] [place] [address] [phone] Helga Silvestre MD pt with recent episodes of symptomatic A. Fib, Sent 2018 apparently RVR [address] [place] [address] [phone] Maria Isabel Fry MD pt with Left total hip replacement in 2017, now Sent 01/29 complains of anterior hip pain with going up and down stairs [address] [address] [phone]
--- OUTSIDE RECORDS SUMMARY | 2019-07-13 18:01 | XMS REPORT | Continuity of Care Document ---
:1945 External Reference #:[id number] Author Name Karmen Montelongo MD (transmitted by agent of provider Aleida Wolff) Address [address], [address] [place] [address] Care Team Providers Name Role Phone Reema Martin M.D. - Family Medicine Care Team Information Machine Maintenance Supervisor [phone] [facility] - General Care Team Information Machine Maintenance Supervisor Acute Care Hospital Problems Active Problems Provider [...] 20+pack years End: Smoker Smoking Status Reviewed: 06/05/19 Former Cigarette 20+pack years Smoker ETOH Use [...] Unknown Minerals capsule/tablet by mouth twice daily [id number] Chewtabs History Medications Metoprolol Succinate 1 by mouth 90tabs I48.0 Helga Silvestre M.D. 2018 - ER every day 04/06/2019 25mg Tablets ER 24HR Medications Administered in Office Medication SIG Qnty Indications Ordering Provider Date Prolia Injection, Denosumab, 1MG Nurse Visit A 03/12/2019 Injection Prolia Injection, Denosumab, 1MG Nurse Visit [place] 08/09/2018 Injection Immunizations Description No Information Available Vital Signs Date Vital Result Comment 06/05/2019 10:54am Height 69 inches 5'9" Weight 177.00 lb Heart Rate 62 /min BP Systolic Sitting 101 mmHg BP Diastolic Sitting 64 mmHg Body Temperature 97.5 F O2 % BldC Oximetry 97 % BMI (Body Mass Index) 26.1 kg/m2 05/03/2019 3:07pm Height 69 inches 5'9" Weight 176.00 lb Heart Rate 56 /min BP Systolic Sitting 112 mmHg Lue reg cuff BP Diastolic Sitting 66 mmHg Lue reg cuff O2 % BldC Oximetry 98 % BMI (Body Mass Index) 26.0 kg/m2 Results Test Acquired Date Facility Test Result H/L Range Note Laboratory test 02/21/2019 [facility] Magnesium 1.6 mg/dL Low 1.9-2.[address] [place] [address] [phone] TSH (Thyroid Stim Horm) 3.10 mcIU/mL Normal 0.34-5.60 Comp Metabolic 02/21/2019 [facility] Sodium 141 mmol/L Normal 135-[address] [place] [address] [phone] Potassium 3.7 mmol/L Normal 3.5-5.0 Chloride 111 [...] Egfr Non- 80.7 >60 Egfr 97.6 >60 1 CBC Auto 02/21/2019 [facility] White Blood 5.7 10^3/uL Normal 3.5-10.[address] [place] [address] [phone] Red Blood Count 4.15 10^6/uL Normal 3.70-4.87 [...] Red Blood Cells % 0.1 CBC Auto 01/29/2019 [facility] White Blood 6.9 10^3/uL Normal 3.5-10.[address] [place] [address] [phone] Red Blood Count 4.54 10^6/uL Normal 3.70-4.87 [...] Nucleated Red Blood Cells % 0.1 Laboratory test 01/29/2019 [facility] C Reactive 1.54 mg/L Normal <8.[address] [place] [address] [phone] Laboratory test 01/15/2019 [facility] Vitamin D 73.2 High 20- 50 [address] Total 25(Oh) ng/[place] [address] [phone] Basic Metabolic 01/15/2019 [facility] Sodium 140 Normal 135- [address] mmol/[place] [address] [phone] Potassium 4.3 mmol/L Normal 3.5-5.0 Chloride 105 mmol/L Normal 101-111 Co2 Carbon Dioxide 27 mmol/L Normal 22-32 Anion Gap 8 mmol/L Normal 2-11 Glucose 77 mg/dL Normal 70-100 Blood Urea Nitrogen 22 mg/dL Normal 6-24 Creatinine 1.14 mg/dL High 0.51-0.95 BUN/Creatinine Ratio 19.3 Normal 8-20 Calcium 9.5 mg/dL Normal 8.6-10.3 Egfr Non- 46.7 >60 Egfr 56.5 >60 3 Laboratory 01/15/2019 [facility] TSH (Thyroid 1.64 Normal 0.34 -5.60 test finding [address] Stim Horm) mcIU/[place] [address] [phone] CBC Auto Diff 01/15/2019 [facility] White Blood 6.5 10^3/uL Normal 3.5-10.[address] [place] [address] [phone] Red Blood Count 4.48 10^6/uL Normal 3.70-4.87 [...] % Nucleated Red Blood Cells % 0.1 1 Because ethnic data is not always readily [...] 15-29 5 Kidney failure <15 (or dialysis) 2 Total 25-Hydroxyvitamin D2 and D3 (25-OH-VitD) <10 ng/mL (severe deficiency) 10-19 ng/mL (mild to moderate deficiency) 20-50 ng/mL (optimum levels) 51-80 ng/mL (increased risk of hypercalciuria) >80 ng/mL (toxicity possible) 3 Because ethnic data is not always [...] 15-29 5 Kidney failure <15 (or dialysis) Procedures Date Code Description Status 04/12/2019 24338 EKG Tracing & Interpretation Completed 04/06/2019 57289 EKG Tracing & Interpretation Completed 03/12/2019 68051 Admin Of Inj Completed 03/08/2019 [id number] Bone Mineral Density Test Completed 03/02/2019 47835 Stress Test Completed 02/22/2019 72046 EKG, Interpretation Only Completed 02/21/2019 77486 Color Flow Doppler/Interp & Reprt Completed 02/21/2019 65944 Pulse Wave/Continuous-Interp.RPT Completed 02/21/2019 54817 Echocardiography, Transesophageal, Real Time W/Image Completed 2D W/W/O M-M 02/21/2019 83246 EKG, Interpretation Only Completed 02/21/2019 58213 Cardioversion Completed 02/12/2019 56140 EKG Tracing & Interpretation Completed 01/15/2019 11867 EKG Tracing & Interpretation Completed 10/30/2014 [id number] Colonoscopy Completed Medical Devices Description No Information Available Encounters Type Date Location Provider Dx Diagnosis Office Visit 05/03/2019 [facility] Internal Renay Finn, R07.89 Other [facility]ox[facility] fibrillation Office Visit 04/12/2019 4:20p [facility] Helga Silvestre I48.0 Paroxysmal atrial Of [facility] M.D. fibrillation H54.7 Unspecified visual loss G45.9 Transient cerebral ischemic attack, unspecified Office Visit 04/06/2019 8:40a [facility] Helga Silvestre I48.0 Paroxysmal atrial Of Furniture Repairer AT [facility] [place] M.D. fibrillation R19.7 Diarrhea, unspecified Z86.73 Prsnl hx of TIA (TIA), and cereb infrc w/o resid deficits Q21.1 Atrial septal defect Office Visit 03/14/2019 [facility] Marysol M81.0 Age-related 2:30p Clinic of Jude Hernandez MD osteoporosis w/o current pathological fracture Office Visit 03/07/2019 [facility] Marysol M81.0 Age-related 1:50p Clinic of Jude Hernandez MD osteoporosis w/o current pathological fracture Office Visit 02/22/[address] [facility] I48.0 Paroxysmal atrial 10:36a [facility]oc,[facility], PAIsmaelC fibrillation Hospitalists Z86.73 Prsnl hx of [...] w/o resid deficits Office Visit 02/21/2019 11:00a [facility] Helga Silvestre, I48.0 Paroxysmal atrial Of Furniture Repairer AT [facility] [place] M.D. fibrillation Z86.73 Prsnl hx of TIA (TIA), and cereb infrc w/o resid deficits Office Visit 02/12/2019 1:00p [facility] Helga Silvestre, I48.91 Unspecified atrial Cardiology Of M.D. fibrillation [facility] I47.1 Supraventricular tachycardia I69.320 Aphasia following cerebral infarction Office Visit 02/09/2019 11:15a [facility] Maria Isabel Fry M25.552 Pain in left at [facility] M.D. hip Z96.642 Presence of left artificial hip joint Office Visit 01/29/2019 10:30a [facility] Maria Isabel Fry M25.552 Pain in left at [facility] M.D. hip Z96.642 Presence of left artificial hip joint M25.512 Pain in left shoulder S46.012A Strain of musc/tend the rotator cuff of left shoulder, init M75.42 Impingement syndrome of left shoulder Office Visit 01/15/2019 1:40p [facility] Internal Reema Martin MD M25.552 Pain in left Medicine - [facility] hip I48.0 Paroxysmal atrial fibrillation R29.6 Repeated falls M81.0 Age-related osteoporosis w/o current pathological fracture R00.1 Bradycardia, unspecified Assessments Date Code Description Provider 06/05/2019 Z00.00 Encounter for general adult medical [...] M.D. unspecified 04/06/2019 I48.0 Paroxysmal atrial fibrillation Hegla Silvestre M.D. 04/06/2019 R19.7 Diarrhea, unspecified Helga [...] Conrad M.D. 02/22/2019 I48.0 Paroxysmal atrial fibrillation ANDREWS JesusC 02/22/2019 Z86.73 Personal history of transient ischemic VIRGEN Jesus attack (TIA), and cerebral infarction without residual deficits 02/22/2019 Z85.3 Personal history of malignant neoplasm of ANDREWS JesusC breast 02/22/2019 Z98.84 Bariatric surgery status ANDREWS JesusC 02/22/2019 Z86.59 Personal history of other mental and CorneliaANDREWS HannonC behavioral disorders 02/21/2019 R00.1 Bradycardia, unspecified Chuy [...] Reema Martin MD Plan of Treatment Future Appointment(s):12/10/2019 10:40 am - Reema Martin MD at [facility] Internal Medicine - [facility]07/05/2019 1:50 pm - Helga Silvestre M.D. at [facility]08/20/2019 3:00 pm - Bright Hernandez MD at [facility] Rmbhgbvvatt01/17/2019 - Karmen Montelongo MDZ00.00 Encounter for general adult medical examination without abnormal findingsComments:VACCINES:Flu shot every year in the fall.Tetanus: uptodate as per ptPneumonia vaccine: has received one pneumonia shot ( no record )Shingles vaccine: Please do find out if you received the new shot SCREENING: Colonoscopy: last one done in 2014 Mammogram: s/p bilateral mastectomyFollow up: F/U [address] Cintron48.0 Paroxysmal atrial fibrillationComments: Continue to f/u with Dr. Denton81.0 Age-related osteoporosis without current pathological fractureComments:Continue LttzfjT39.84 Bariatric surgery statusComments:Your basic labs are normal. Will add on Vitamin B12 and Vitamin DZ23 Encounter for immunizationNew Medication:Shingrix 50 mcg/0.5ML - inject per ridefkerW39.3 Personal history of malignant neoplasm of breastComments: Continue to f/u with Dr. ArmasF41.9 Anxiety disorder, unspecifiedComments: Continue Buspar Functional Status Description No Information Available Mental Status Description No Information Available Referrals Refer to Dr Reason for Referral Status Appt Date Marysol Hernandez MD Discuss bone density medication and treatment Sent 03/07 [facility] [address] [place] [address] [phone] Helga Silvestre MD pt with recent episodes of symptomatic A. Fib, Sent 2018 apparently RVR [address] [place] [address] [phone] Maria Isabel Fry MD pt with Left total hip replacement in 2017, now Sent 01/29 complains of anterior hip pain with going up and down stairs [address] [facility] [address] [facility] [place] [address] [phone]
[2019-07-13] MEDS ORDERED: Magnesium Oxide TAB* 400 MG PO ONE (18:15)
[2019-07-13] MEDS ORDERED: Acetaminophen TAB* 325 MG PO PRN (18:49)
[2019-07-13] MEDS ORDERED: Ondansetron INJ* 2 MG/ML VIAL IV PRN (18:49)
[2019-07-13] MEDS ORDERED: Al Hydrox/Mg Hydrox/Simet LIQ* 30 ML UDC PO PRN (18:49)
[2019-07-13] MEDS ORDERED: Sotalol TAB* 80 MG PO ONE (18:56)
--- NOTE | 2019-07-13 18:56 | ED ---
HPI Cardiac - HPI Summary HPI Summary: 73 year old F presenting to [facility] alone complains of tachycardia and 'face' pain since earlier today 07/13/2019. Patient reports face pain that radiates down to arms, pain in tongue, shallow breathing, diarrhea, cough, and a cold. Patient denies fever and vomiting. She took sanjeev-seltzer and gel caps last night for the cold. PMHx of A-fib. No PMHx of CHF or blood clots in leg. The patient rates the pain 3/10 in severity. Symptoms aggravated by nothing. Symptoms alleviated by nothing. - History of Current Complaint Chief Complaint: EDDysrhythmPalp Stated Complaint: SOB PER PT Time Seen by Provider: 07/13/19 17:15 Hx Obtained From: Patient Onset/Duration: Started Hours Ago, Still Present Pain Intensity: 3 Pain Scale Used: 0-10 Numeric Aggravating Factor(s): Nothing Alleviating Factor(s): Nothing Associated Signs and Symptoms: Positive: Shortness of Breath - shallow breaths, Cough, Other: - tachycardia, diarrhea, cold, face pain that radiates down arms and in tongue. Negative: Chest Pain, Fever, Vomiting - Allergy/Home Medications Allergies/Adverse Reactions: Allergies Allergy/AdvReac Type Severity Reaction Status Date / Time warfarin [From Coumadin] Allergy Hives Verified 07/13/19 17:05 Home Medications: Home Medications Acetaminophen TAB* [Tylenol TAB*] 325 mg PO Q4H PRN 07/13/19 [History Confirmed 07/13/19] Denosumab [Prolia] 60 mg INJ Q6M 07/13/19 [History Confirmed 07/13/19] Melatonin (NF) 3 mg PO BEDTIME PRN 07/13/19 [History Confirmed 07/13/19] Multivitamins/Minerals TAB* [Theragran/minerals TAB*] 1 tab PO DAILY 07/13/19 [ History Confirmed 07/13/19] Potassium Chlor TAB* [Klor Con ER TAB*] 10 meq PO DAILY 07/13/19 [History Confirmed 07/13/19] Sotalol TAB* [Betapace 80 MG TAB*] 40 mg PO BEDTIME 07/13/19 [History Confirmed 07/13/19] PMH/Surg Hx/FS Hx/Imm Hx Endocrine/Hematology History: Denies: Hx Diabetes Cardiovascular History: Reports: Hx Atrial Fibrillation Denies: Hx Angina Respiratory History: Denies: Hx Asthma, Hx Chronic Obstructive Pulmonary Disease (COPD) History: Denies: Hx Chronic Renal Failure Musculoskeletal History: Denies: Hx Osteoporosis Sensory History: Reports: Hx Cataracts - HX, Hx Contacts or Glasses Denies: Hx Hearing Aid Opthamlomology History: Reports: Hx Cataracts - HX, Hx Contacts or Glasses Neurological History: Reports: Hx Transient Ischemic Attacks (TIA) - Surgical History Surgery Procedure, Year, and Place: R mastectomy, L mastectomy. R Hip replacement. abdominal surgery. retina repair L eye. cataract- bilateral. gastric bypass. bilateral feet surgery Infectious Disease History: No Infectious Disease History: Denies: Traveled Outside the [place] in Last 30 Days - Family History Known Family History: Positive: Cardiac Disease - Social History Alcohol Use: Rare Alcohol Amount: QUIT FOR 29.5 YEARS Substance Use Type: Reports: None Substance Use Comment - Amount & Last Used: ETOH Smoking Status (MU): Former Smoker Review of Systems Constitutional: Other - positive - cold Sx Negative: Fever Positive: Shortness Of Breath - shallow breaths, Cough Positive: Diarrhea. Negative: Vomiting Positive: Other - pain in face that radiates down to arm and tongue All Other Systems Reviewed And Are Negative: Yes Physical Exam - Summary Physical Exam Summary: Constitutional: Well-developed, Well-nourished, Alert. (-) Distressed Skin: Warm, Dry HENT: Normocephalic; Atraumatic Eyes: Conjunctiva normal Neck: Musculoskeletal ROM normal neck. (-) JVD, (-) Stridor, (-) Tracheal deviation Cardio: tachycardic, irregular rhythm Pulmonary/Chest wall: Effort normal. (-) Respiratory distress, (-) Wheezes, (-) Rales Abd: Soft, (-) tenderness, (-) Distension, (-) Guarding, (-) Rebound Musculoskeletal: (-) Edema Lymph: (-) Cervical adenopathy Neuro: Alert, Oriented x3 Psych: Mood and affect Normal Triage Information Reviewed: Yes Vital Signs On Initial Exam: Initial Vitals Temp Pulse Resp BP Pulse Ox 97.6 F 125 19 121/76 98 07/13/19 17:03 07/13/19 17:03 07/13/19 17:03 07/13/19 17:03 07/13/19 17:03 Vital Signs Reviewed: Yes Procedures - Sedation Patient Received Moderate/Deep Sedation with Procedure: No Diagnostics - Vital Signs Vital Signs Temp Pulse Resp BP Pulse Ox 07/13/19 18:27 104 23 87/74 92 07/13/19 18:25 99 18 77/61 98 07/13/19 18:19 70 16 96/60 97 07/13/19 18:14 76 17 79/59 97 07/13/19 18:09 89 19 86/55 97 07/13/19 18:05 86 14 85/58 96 07/13/19 18:01 82 13 95 07/13/19 18:00 95 16 94/59 97 07/13/19 17:50 92 17 97/72 96 07/13/19 17:44 114 16 124/91 97 07/13/19 17:38 99 15 105/47 97 07/13/19 17:12 111 14 98 07/13/19 17:10 108 15 126/77 97 07/13/19 17:03 97.6 F 125 19 121/76 98 - Laboratory Lab Results: Lab Results 07/13/19 07/13/19 07/13/19 Range/Units 16:56 16:56 16:56 WBC 9.0 (3.5-10.8) 10^3/uL RBC 4.80 (3.70-4.87) 10^6 /uL Hgb 15.3 (12.0-16.0) g/dL Hct 44 (35-47) % MCV 92 (80-97) fL MCH 32 H (27-31) pg MCHC 35 (31-36) g/dL RDW 14 (10-15) % Plt Count 271 (150-450) 10^3/uL MPV 8.5 (7.4-10.4) fL Neut % (Auto) 57.6 % Lymph % (Auto) 27.6 % Bullock % (Auto) 10.1 % Eos % (Auto) 3.6 % Baso % (Auto) 1.1 % Absolute Neuts (auto) 5.2 (1.5-7.7) 10^3/ul Absolute Lymphs (auto) 2.5 (1.0-4.8) 10^3/ul Absolute Monos (auto) 0.9 H (0-0.8) 10^3/ul Absolute Eos (auto) 0.3 (0-0.6) 10^3/ul Absolute Basos (auto) 0.1 (0-0.2) 10^3/ul Absolute Nucleated RBC 0.0 10^3/ul Nucleated RBC % 0.1 INR (Anticoag Therapy) 1.09 (0.82-1.09) Sodium 134 L (135-145) mmol/L Potassium 4.2 (3.5-5.0) mmol/L Chloride 102 (101-111) mmol/L Carbon Dioxide 21 L (22-32) mmol/L Anion Gap 11 (2-11) mmol/L BUN 15 (6-24) mg/dL Creatinine 0.94 (0.51-0.95) mg/dL Est GFR ( Amer) 70.6 (>60) Est GFR (Non-Af Amer) 58.4 (>60) BUN/Creatinine Ratio 16.0 (8-20) Glucose 106 H (70-100) mg/dL Calcium 9.4 (8.6-10.3) mg/dL Magnesium 1.9 (1.9-2.7) mg/dL Total Bilirubin 0.50 (0.2-1.0) mg/dL AST 42 H (13-39) U/L ALT 34 (7-52) U/L Alkaline Phosphatase 73 (34-104) U/L Troponin I 0.00 (<0.03) ng/mL B-Natriuretic Peptide (<=100) pg/mL Total Protein 6.7 (6.4-8.9) g/dL Albumin 4.0 (3.2-5.2) g/dL Globulin 2.7 (2-4) g/dL Albumin/Globulin Ratio 1.5 (1-3) 07/13/19 Range/Units 17:15 WBC (3.5-10.8) 10^3/uL RBC (3.70-4.87) 10^6 /uL Hgb (12.0-16.0) g/dL Hct (35-47) % MCV (80-97) fL MCH (27-31) pg MCHC (31-36) g/dL RDW (10-15) % Plt Count (150-450) 10^3/uL MPV (7.4-10.4) fL Neut % (Auto) % Lymph % (Auto) % Bullock % (Auto) % Eos % (Auto) % Baso % (Auto) % Absolute Neuts (auto) (1.5-7.7) 10^3/ul Absolute Lymphs (auto) (1.0-4.8) 10^3/ul Absolute Monos (auto) (0-0.8) 10^3/ul Absolute Eos (auto) (0-0.6) 10^3/ul Absolute Basos (auto) (0-0.2) 10^3/ul Absolute Nucleated RBC 10^3/ul Nucleated RBC % INR (Anticoag Therapy) (0.82-1.09) Sodium (135-145) mmol/L Potassium (3.5-5.0) mmol/L Chloride (101-111) mmol/L Carbon Dioxide (22-32) mmol/L Anion Gap (2-11) mmol/L BUN (6-24) mg/dL Creatinine (0.51-0.95) mg/dL Est GFR ( Amer) (>60) Est GFR (Non-Af Amer) (>60) BUN/Creatinine Ratio (8-20) Glucose (70-100) mg/dL Calcium (8.6-10.3) mg/dL Magnesium (1.9-2.7) mg/dL Total Bilirubin (0.2-1.0) mg/dL AST (13-39) U/L ALT (7-52) U/L Alkaline Phosphatase (34-104) U/L Troponin I (<0.03) ng/mL B-Natriuretic Peptide 149 H (<=100) pg/mL Total Protein (6.4-8.9) g/dL Albumin (3.2-5.2) g/dL Globulin (2-4) g/dL Albumin/Globulin Ratio (1-3) Result Diagrams: 07/13/19 16:56 07/14/19 04:14 Lab Statement: Any lab studies that have been ordered have been reviewed, and results considered in the medical decision making process. - EKG 9997 Cardiac Rate: Tachycardia EKG Rhythm: Atrial Fibrillation Summary of EKG Findings: EKG reveals A-fib with RVR at 155 bpm, no STEMI. ED physician has reviewed and interpreted this EKG. Disposition - Course Course Of Treatment: 73 year old F presenting to [facility] complains of tachycardia and 'face' pain since earlier today 07/13/2019. Physical exam findings: heart: tachycardic, irregular rhythm. Bloodwork results with no significant abnormalities except for H MCH, H Absolute Monos (auto), L Sodium, L Carbon Dioxide, H Glucose, H AST, H B-Natriuretic Peptide. An EKG shows A-fib with RVR at 155 bpm, no STEMI. In the ED course, the patient was given Sotalol 80 mg , Dilitiazem 125 mg in 125 ml, Al Hydrox 30 ml, Magnesium Oxide 800 mg, Ns, 650 mg Acetominophen, Ondansetron 4 mg. We discussed patient care with at 1807 who recommended admission. The patient will be admitted to the hospitalist. The patient is agreeable with this plan. - Diagnoses Provider Diagnoses: Atrial fibrillation with RVR - Physician Notifications Discussed Care Of Patient With: Shelby Leonard Time Discussed With Above Provider: 18:07 Instructed by Provider To: Admit As Inpatient - Critical Care Time Critical Care Time: 30-74 min Discharge ED - Sign-Out/Discharge Documenting (check all that apply): Patient Departure - admit - Discharge Plan Condition: Stable Disposition: ADMITTED TO [facility] - Billing Disposition and Condition Condition: STABLE Disposition: Admitted to [facility] - Attestation Statements Document Initiated by Cali: Yes Documenting Scribe: Rajat Aguilera Provider For Whom Cali is Documenting (Include Credential): Graham Zambrano DO [place] Attestation: Rajat Ho scribed for Graham Zambrano DO on 07/14/19 at 0728. Scribe Documentation Reviewed: Yes Provider Attestation: The documentation as recorded by the Rajat mariano accurately reflects the service I personally performed and the decisions made by me, Graham Zambrano DO Status of Scribe Document: Viewed
[2019-07-13] MEDS ORDERED: Melatonin 3 MG TAB PO PRN (19:08)
[2019-07-13] MEDS ORDERED: Sotalol TAB* 80 MG PO SCH (21:00)
[2019-07-13] MEDS: Apixaban* 5 MG TAB PO SCH (21:25)
[2019-07-13] MEDS: busPIRone TAB* 15 MG PO SCH (21:26)
--- NOTE | 2019-07-13 22:00 | HP ---
CC: Dr. Martin; Dr. Silvestre * HISTORY AND PHYSICAL: DATE OF ADMISSION: 07/13/19 PROVIDER: VIRGEN Alfaro. ATTENDING PHYSICIAN WHILE IN THE HOSPITAL: Dr. Shelby Smith * (dictated by VIRGEN Alfaro). PRIMARY CARE PROVIDER: Dr. Martin. OUTPATIENT MARKETING SERVICES COORDINATOR: Dr. Silvestre. CHIEF COMPLAINT: Shortness of breath with palpitations and facial/jaw pain. HISTORY OF PRESENT ILLNESS: Tasha Brandon is a 73-year-old white female with past medical history significant for paroxysmal AFib, TIAs, right breast cancer , anxiety, osteoporosis, osteoarthritis, who presented to the emergency department with symptomatic palpitations. The patient felt sudden onset of palpitations and then additionally developed shortness of breath, jaw pain which radiates into the face and tongue as well as down to bilateral arms. She also later got up to feed her cat and found herself to be lightheaded. She denies ever having chest pain or pressure. She does mention that she had an upper respiratory infection and today is day 10 and she does feel like she has greatly improved. Has denied fever or chills. She has an intermittent cough, which is not productive and endorses that she has been taking her medications daily. She denies abdominal pain, nausea, vomiting. Now that she is in the emergency department with improved control of her heart rate, she has found that her symptoms have overall improved other than she does still have some tongue pain, which is not typical for her. EMERGENCY DEPARTMENT COURSE: When the patient arrived to the emergency department, the patient was found to be in AFib with RVR, initially with heart rate in the 140s and started on Cardizem drip. At time of my evaluation, the patient's heart rates ranged from low 100s to up to 120, but was becoming hypotensive and additionally to this point a second liter of IV normal saline was ordered. Hospitalists were then asked to evaluate the patient for admission. PAST MEDICAL HISTORY: 1. Paroxysmal AFib, on Eliquis. 2. TIA. 3. Right breast cancer, status post mastectomy. 4. Anxiety. 5. Osteoporosis. PAST SURGICAL HISTORY: 1. Mastectomy to both breasts. 2. Breast reconstruction. 3. Bilateral cataract surgeries. 4. Left hip replacement. 5. Laser surgery of her torn retina of left eye. 6. Excision of basal cell carcinoma to right thigh. 7. Bilateral feet bunionectomies. 8. Tubal ligation. 9. Tonsillectomy and adenoidectomy. HOME MEDICATIONS: 1. Sotalol 40 mg p.o. at bedtime. 2. Vitamin B12 1000 mcg p.o. daily. 3. Multivitamin 1 tab p.o. daily. 4. Melatonin 3 mg p.o. at bedtime p.r.n. insomnia. 6. Tylenol 325 mg p.o. q.4 hours p.r.n. pain. 7. Vitamin D 400 units p.o. at bedtime. 8. Prolia 60 mg injection every 6 months. 9. BuSpar 15 mg p.o. b.i.d. 10. Calcium chloride 10 mEq p.o. daily. 11. Eliquis 5 mg p.o. b.i.d. ALLERGIES: The patient has a reaction of hives to COUMADIN. FAMILY HISTORY: The patient's brother had a history of CHF and COPD and ultimately of complications related to COPD. Her father of complications related to heart failure. He also has history of prostate cancer. Her mother of breast cancer. SOCIAL HISTORY: The patient lives alone. She has healthcare proxy of her sister, Nguyen Gonzalez, phone number [phone]. She has a distant history of alcohol use and has no recent alcohol use and denies illicit drug use as well as tobacco use. She has previous smoking history of approximately 2 packs per day from ages 12 to 40. REVIEW OF SYSTEMS: An 11-point review of systems was completed and all pertinent positives and negatives are above in the HPI and all other systems are negative. PHYSICAL EXAMINATION GENERAL: Thin, elderly white female, lying up in her hospital bed appearing comfortable, in no acute distress. VITAL SIGNS: Initial vital signs in the emergency department: Temperature 97.6 , heart rate 125, respiratory rate 19, oxygen saturation 98% on room air, blood pressure 121/76. HEENT: Eyes: PERRL. Sclerae anicteric. ENT: Mucous membranes moist. NECK: Supple without JVD. LUNGS: Clear to auscultation throughout. CARDIO: Tachycardic rate with regular rhythm consistent with AFib with RVR. No appreciable murmurs, rubs, or gallops. ABDOMEN: Abdomen is soft, nontender, nondistended. EXTREMITIES: No clubbing, cyanosis or edema. NEURO: The patient is alert and oriented x3. No focal deficits. Able to move all extremities. SKIN: Warm, dry and intact. DIAGNOSTIC STUDIES/LAB DATA: EKG: Heart rate 155 beats per minute. No visible P waves, normal axis. Due to her heart rate, unable to appreciate any evidence of ischemia. White blood cell count 9, hemoglobin 15.3, hematocrit 44, platelet count 271. INR 1.09. Sodium 134, potassium 4.2, chloride 102, carbon dioxide 21, anion gap of 11, BUN 15, creatinine 0.94, glucose 106, calcium 9.4, magnesium 1.9, total bili 0.5, AST 42, ALT 34, alk phos 73, BNP 149, troponin 0. ASSESSMENT AND PLAN: Tasha Brandon is a 73-year-old white female with past medical history significant for paroxysmal atrial fibrillation, on anticoagulation; history of right breast cancer, status post mastectomy; history of transient ischemic attacks; anxiety; and osteoporosis; who presented to the emergency department due to symptomatic chest palpitations and found to be in atrial fibrillation with rapid ventricular response. The patient will be inpatient for: 1. Atrial fibrillation with rapid ventricular response. The patient presented with symptomatic palpitations and was found to be in atrial fibrillation with rapid ventricular response based on EKG. She has been started on a Cardizem drip and this has improved her symptomatically, but does still appear to be in a rapid rate, which is greatly improved as she is now fluctuating between the one-teens and low 120s, but is at times hypotensive with this measurement. The patient will be admitted to ICU due to her actively needing titration on her Cardizem drip. I have ordered another bolus of IV fluids due to this. I discussed the case with Dr. Silvestre who knows the patient from the outpatient phase and who is additionally polymerization kettle operator this evening. She recommends increasing her sotalol to 80 mg p.o. b.i.d. I am going to give the 80 mg dose early today in the emergency department. Dr. Silvestre additionally recommended making the patient n.p.o. after midnight in case cardioversion is needed. Additionally, I will do a chest x-ray and check her TSH. I have given a small 800 mg dose of magnesium oxide to keep her magnesium over 2. Her potassium is already over 4 and we will continue to monitor this. She will be admitted on telemetry. Of note, she does have a 3-day quality assurance monitor final in place at this time. I will continue her Eliquis as well. 2. Anxiety. I will continue the patient's home BuSpar. 3. History of transient ischemic attack. It does not appear the patient is on aspirin or statin. 4. Osteoporosis. The patient gets denosumab every 6 months. There is no need to continue this at this time. 5. DVT prophylaxis. The patient is on Eliquis. She has a DVT risk score of over 2. 6. FEN: The patient may have regular unrestricted diet and she will be n.p.o. after midnight. Electrolytes as previously discussed. Fluid status as previously discussed. 7. Code Status: The patient is full code. This case has been discussed with my attending, Dr. Shelby Smith and she agrees with this plan of care. VIRGEN ALFARO [id number]/[facility] #: [id number] JONELLE
[2019-07-14 04:43] LABS: BUN/Creatinine Ratio 15.2 (8-20); Calcium 8.1 mg/dL (8.6-10.3); EGFR African American 86.3 (>60); EGFR Non-African American 71.3 (>60); Magnesium 1.8 mg/dL (1.9-2.7); Potassium 4.3 mmol/L (3.5-5.0)
[2019-07-14] MEDS ORDERED: Magnesium Sulfate 1 GM IV* 1 GM/100 ML BAG IV ONE (05:39)
[2019-07-14] MEDS: busPIRone TAB* 15 MG PO SCH (08:29)
[2019-07-14] MEDS: Apixaban* 5 MG TAB PO SCH (08:29)
[2019-07-14] MEDS ORDERED: Sotalol TAB* 80 MG PO SCH (09:00)
[2019-07-14] MEDS ORDERED: Potassium Chlor TAB* 10 MEQ TAB.ER PO SCH ×2 (09:00→21:00)
[2019-07-14] MEDS ORDERED: Cyanocobalamin TAB* 500 MCG PO SCH (09:00)
[2019-07-14 16:11] VITALS: BP 90/54
--- NOTE | 2019-07-14 16:47 | CONSULT ---
Subjective Date of Service: 07/14/19 - CC: face pain, heart racing, SOB found in Afib, RVR Interval History: About 12:45 PM yesterday pt noted racing heart, face pain, SOB. No EtOH, caffiene, no problems sleeping. Feels great now s/p chemical CV. Pt states was taking Sotalol 40 mg once daily only. Family History: Unchanged from Admission Social History: Unchanged from Admission - nurse, former smoker. Past Medical History: Unchanged from Admission - + PAF, COPD, hx gastric bypass sx for obeisity, recurrent TIA's past. Medications Active Medications: Acetaminophen (Tylenol Tab*) 650 mg PO Q4H PRN PRN Reason: MILD PAIN or TEMP > 100.4 Al Hydrox/Mg Hydrox/Simethicone (Maalox Plus*) 30 ml PO Q6H PRN PRN Reason: INDIGESTION Apixaban (Eliquis*) 5 mg PO BID [facility] Last Admin: 07/14/19 08:29 Dose: 5 mg Buspirone HCl (Buspar Tab *) 15 mg PO BID [facility] Last Admin: 07/14/19 08:29 Dose: 15 mg Cyanocobalamin (Vitamin B12 Tab*) 1,000 mcg PO DAILY [facility] Last Admin: 07/14/19 08:29 Dose: 1,000 mcg Melatonin (Melatonin) 3 mg PO BEDTIME PRN PRN Reason: INSOMNIA Potassium Chloride (Klor Con Er Tab*) 10 meq PO 2100 [facility] Sotalol HCl (Betapace Tab*) 80 mg PO BID [facility] Last Admin: 07/14/19 08:29 Dose: 80 mg Home Medications: Apixaban* [Eliquis*] 5 mg PO BID 07/12/18 [History Confirmed 07/13/19] busPIRone TAB* [Buspar TAB *] 15 mg PO BID 07/12/18 [History Confirmed 07/13/19] Cholecalciferol TAB* [Vitamin D TAB*] 400 unit PO BID 02/20/19 [History Confirmed 07/13/19] Cyanocobalamin TAB* [Vitamin B12 TAB*] 1,000 mcg PO DAILY 02/20/19 [History Confirmed 07/13/19] Acetaminophen TAB* [Tylenol TAB*] 325 mg PO Q4H PRN 07/13/19 [History Confirmed 07/13/19] Denosumab [Prolia] 60 mg INJ Q6M 07/13/19 [History Confirmed 07/13/19] Melatonin (NF) 3 mg PO BEDTIME PRN 07/13/19 [History Confirmed 07/13/19] Multivitamins/Minerals TAB* [Theragran/minerals TAB*] 1 tab PO DAILY 07/13/19 [ History Confirmed 07/13/19] Potassium Chlor TAB* [Klor Con ER TAB 10 MEQ*] 10 meq PO DAILY 07/13/19 [ History Confirmed 07/13/19] Sotalol TAB* [Betapace 80 MG TAB*] 80 mg PO BID #60 tab 07/14/19 [Rx] Review of Systems - Measurements Intake and Output: Intake and Output Last 24 Hours 07/12/19 07/13/19 07/14/19 07/15/19 04:59 04:59 04:59 04:59 Intake Total 1000 Balance 1000 Weight 175 lb Intake: IV Fluids 1000 - Review of Systems General Comments: No CP, no orthopnea, no recent infections. no decline in exercise capactiy prior to onset of symptoms. No recent GI/ problems, Review of Systems Statement: All other review of systems negative, unless stated above. Objective Vital Signs: Temp Pulse Resp BP Pulse Ox 98 F 61 14 90/54 98 07/14/19 15:23 07/14/19 15:23 07/14/19 15:23 07/14/19 15:23 07/14/19 15:23 Initial Vital Signs Temp 97.6 F 07/13/19 17:03 Pulse 125 07/13/19 17:03 Resp 19 07/13/19 17:03 BP 121/76 07/13/19 17:03 Pulse Ox 98 07/13/19 17:03 Oxygen Devices in Use Now: None Appearance: Older woman, well nourished walking on floor in [facility]. Eyes: No Scleral Icterus Ears/Nose/Mouth/Throat: Clear Oropharnyx, Mucous Membranes Moist Neck: NL Appearance and Movements; NL JVP, No Thyroid Enlargement, Masses Respiratory: Symmetrical Chest Expansion and Respiratory Effort, Clear to Auscultation Cardiovascular: NL Sounds; No Murmurs; No JVD, RRR Abdominal: NL Sounds; No Tenderness; No Distention - hear bowel sounds in chest/ SS. Extremities: No Edema Skin: No Rash or Ulcers Neurological: Alert and Oriented x 3, NL Muscle Strength and Tone Lines/Tubes/Other Access: Clean, Dry and Intact Peripheral IV Laboratory Results: 07/13/19 16:56 07/13/19 16:56 INR (Anticoag Therapy) 1.09 (0.82-1.09) 07/13/19 16:56 Total Bilirubin 0.50 mg/dL (0.2-1.0) 07/13/19 16:56 AST 42 U/L (13-39) H 07/13/19 16:56 ALT 34 U/L (7-52) 07/13/19 16:56 Alkaline Phosphatase 73 U/L (34-104) 07/13/19 16:56 B-Natriuretic Peptide 149 pg/mL (<=100) H 07/13/19 17:15 Total Protein 6.7 g/dL (6.4-8.9) 07/13/19 16:56 Albumin 4.0 g/dL (3.2-5.2) 07/13/19 16:56 Globulin 2.7 g/dL (2-4) 07/13/19 16:56 Albumin/Globulin Ratio 1.5 (1-3) 07/13/19 16:56 TSH 3.76 mcIU/mL (0.34-5.60) 07/13/19 17:19 07/13/19 16:56 Troponin I 0.00 Diagnostic Imaging: Patient Name: SACHIN CHOWDHURY Medical Record#: [id number] Ordering Physician: VIRGEN Dinh Acct.#: [id number] : 1945 Age: 73 Sex: F Location: [facility] Exam Date: 07/13/191843 ADM Status: ADM IN Order Information: CHEST PA & LAT 2 S Accession Number: [id number] CPT: 22108 HISTORY: chest pain COMPARISONS: May 03, 2019 VIEWS: 4: Frontal dual-energy and lateral views of the chest. FINDINGS: CARDIOMEDIASTINAL SILHOUETTE: The cardiomediastinal silhouette is normal. NGUYỄN: The nguyễn are normal. PLEURA: The costophrenic angles are sharp. No pleural abnormalities are noted. LUNG PARENCHYMA: The lungs are clear. ABDOMEN: The upper abdomen is clear. There is no subphrenic gas. BONES AND SOFT TISSUES: No bone or soft tissue abnormalities are noted. OTHER: The patient is status post bilateral breast augmentation. IMPRESSION: NO ACTIVE CARDIOPULMONARY DISEASE. R1NF Preliminary Imaging Read R1NF <Electronically signed by David Garza MD in [facility]> 07/14/19726 Dictated By: David Garza MD Dictated Date/Time: 07/14/19725 Transcribed Date/Time: 07/14/19725 Copy to: EKG Data: 07/13/2019: Afib 100 bpm 07/14/2019: Sinus bradycardia 48 bpm, QTc 428 ms. Walking HR in 60's to 70's. Assessment/Plan 73 yo with hx recurrent TIA's, found to have PAF, broke through on 40 mg once daily. Low dose per out patient records related to sinus kyleigh. Converted with NSR with 80 mg dose, but resting rate is bradycardic and BP's a bit low I recommend d/c today on Sotalol 40 mg BID Continue OAC for TIA and CCVA prevention. Follow up with cardiology 2-5 weeks with ECG.
--- NOTE | 2019-07-14 22:49 | DS ---
CC: Dr. Martin; Dr. Silvestre * DISCHARGE SUMMARY: DATE OF ADMISSION: 07/13/19 DATE OF DISCHARGE: 07/14/19 PROVIDER: VIRGEN Alfaro ATTENDING PHYSICIAN WHILE IN THE HOSPITAL: Dr. Shelby Smith * (dictated by VIRGEN Alfaro). PRIMARY CARE PROVIDER: Dr. Martin. RADIO STATION OPERATOR: Dr. Silvestre. PRIMARY DIAGNOSIS: Atrial fibrillation with rapid ventricular rate, resolved. SECONDARY DIAGNOSES: 1. Paroxysmal atrial fibrillation, on anticoagulation. 2. Osteoporosis. 3. History of transient ischemic attack. 4. Right breast cancer, status post mastectomy. 5. Anxiety. PERTINENT STUDIES/LAB DATA: Potassium 4.2, magnesium 1.9 at admission. EKG on date of discharge, normal sinus rhythm, rate 44 beats per minute, normal axis. No ST elevations or depressions. There was isolated T wave inversion in lead 3. HISTORY OF PRESENT ILLNESS/HOSPITAL COURSE: Tasha Brandon is a 73-year-old white female with a past medical history significant for paroxysmal atrial fibrillation, on Eliquis; history of TIAs; history of right breast cancer, status post mastectomy; anxiety; and osteoporosis, who first presented to the emergency department due to shortness of breath associated with palpitations as well as dizziness, lightheadedness, facial/jaw pain that radiated down to both arms. Please see the history and physical for further details regarding her admission, which was written by myself. The patient was admitted to the ICU as she was on a diltiazem drip that was being titrated at the time per hospital protocol and the patient remained stable on this and ultimately converted to sinus rhythm, and was transferred back to the medical floor. She was evaluated by Dr. Silvestre on the date of her discharge. Her EKG did demonstrate that she is back into sinus rhythm; however, she was having bradycardia. Her sotalol was increased to 80 mg twice a day at admission and it appeared that this is likely causing her bradycardia as well as some minimal hypotension with systolic in the high 90s, and Dr. Silvestre made recommendations to adjust her sotalol dose and felt she was safe for discharge. On date of discharge, the patient has all her symptoms resolved. She is feeling well. No palpitations, atypical chest pain, difficulty breathing with dizziness or lightheadedness. PHYSICAL EXAM ON DAY OF DISCHARGE: General: Thin, elderly white female, sitting in chair, appearing comfortable, in no acute distress. Eyes: PERRL. Sclerae anicteric. ENT: Mucous membranes are moist. Lungs: Clear to auscultation throughout. Cardio: Regular rate and rhythm without murmurs, rubs or gallops. Abdomen: Soft, nontender, nondistended. Extremities: No clubbing, cyanosis or edema. Neuro: The patient is alert and oriented x3. No focal deficits. Able to move all extremities. DISCHARGE PLAN: Diet: Regular unrestricted diet. Activity: The patient may return to normal activity as tolerated. DISCHARGE INSTRUCTIONS: The patient is to follow up with Dr. Silvestre in 1 month. She should follow up with her primary care provider, Dr. Martin, in 1 week. She was advised to please return to the emergency department if she is experiencing persistent palpitations, especially if associated with shortness of breath, dizziness, lightheadedness or atypical chest pain or she has difficulty she experiences with arm pain, neck pain, jaw pain or tongue pain or if she is experiencing other concerning symptoms. DISCHARGE MEDICATIONS: Continued home medications: 1. Cyanocobalamin 1000 mcg p.o. daily. 2. Multivitamin 1 tab p.o. daily. 3. Melatonin 3 mg p.o. at bedtime p.r.n. insomnia. 4. Tylenol 325 mg p.o. q.4 hours p.r.n. pain. 5. Vitamin D 400 units p.o. b.i.d. 6. Prolia 60 mg injection every 6 months. 7. BuSpar 15 mg p.o. b.i.d. 8. Potassium chloride 10 mEq p.o. daily. 9. Eliquis 5 mg p.o. daily. New medication: 1. Sotalol 40 mg p.o. b.i.d.. Discontinued medication: Sotalol 40 mg p.o. nightly. CONDITION ON DISCHARGE: Stable. DISPOSITION: Home. TIME SPENT: Time spent on this discharge is approximately 35 minutes, approximately half that time was spent at bedside evaluating the patient and discussing the plan of care. VIRGEN ALFARO [id number]/[facility] #: [id number] [facility]
== END 2019-07-14 18:00 | disposition home or self-care (01) | DRG 310 ==
LOC: ED 16:52 → ICU 18:49 → MEDTELE 07-14 01:30
PROVIDERS: ADMIT Internal Medicine; ATTEND Internal Medicine
DX: I48.0 Paroxysmal atrial fibrillation (principal); J44.9 Chronic obstructive pulmonary disease, unspecified; I95.9 Hypotension, unspecified; R00.1 Bradycardia, unspecified; Z96.641 Presence of right artificial hip joint; F41.9 Anxiety disorder, unspecified; M81.0 Age-related osteoporosis without current pathological fracture; Z79.899 Other long term (current) drug therapy; Z87.891 Personal history of nicotine dependence; Z98.84 Bariatric surgery status; Z86.73 Personal history of transient ischemic attack (TIA), and cerebral infarction without residual deficits; Z28.21 Immunization not carried out because of patient refusal; Z88.8 Allergy status to other drugs, medicaments and biological substances; Z90.13 Acquired absence of bilateral breasts and nipples; Z85.3 Personal history of malignant neoplasm of breast; Z79.01 Long term (current) use of anticoagulants
CPT/HCPCS: 36415; 71046; 80048; 80053; 83735; 83880; 84443; 84484; 85025; 85610; 87641; 93005; 96374; 96375; 99285; A9270-GY; J3475; J3490

== ENCOUNTER 2019-11-25 14:58 | Observation (INO) ==
[2019-11-25] MEDS ORDERED: NS 0.9% 1000 ml BAG 1,000 ML IV ONE ×2 (15:20→18:57)
[2019-11-25] MEDS ORDERED: Metoprolol Tartrate 5 mg VIAL 5 ml VIAL (1 mg/ml) IV ONE ×2 (15:32→16:30)
[2019-11-25 15:43] LABS: ABS Basophils 0.1 10^3/ul (0-0.2); ABS Eosinophils 0.3 10^3/ul (0-0.6); ABS Lymphocytes 2.6 10^3/ul (1.0-4.8); ABS Monocytes 0.7 10^3/ul (0-0.8); Eosinophil % 4.1 %; Hematocrit 42 % (35-47); Hemoglobin 14.4 g/dL (12.0-16.0); Lymphocyte % 36.3 %; Mean Corpuscular HGB Conc 35 g/dL (31-36); Mean Corpuscular Hemoglobin 32 pg (27-31); Mean Corpuscular Volume 92 fL (80-97); Nucleated Red Blood Cells % 0.1; Platelet Count 218 10^3/uL (150-450); Red Cell Distribution Width 13 % (10-15)
[2019-11-25 16:03] LABS: Albumin 3.8 g/dL (3.2-5.2); Albumin/Globulin Ratio 1.5 (1-3); BUN/Creatinine Ratio 24.7 (8-20); Calcium 9.3 mg/dL (8.6-10.3); EGFR African American 79.1 (>60); EGFR Non-African American 65.4 (>60); Globulin 2.5 g/dL (2-4); Magnesium 1.8 mg/dL (1.9-2.7); Potassium 4.3 mmol/L (3.5-5.0); Total Bilirubin 0.5 mg/dL (0.2-1.0); Total Protein 6.3 g/dL (6.4-8.9)
[2019-11-25] MEDS ORDERED: Magnesium Sulfate IV 1GM/100ML 1 GM/100 ML BAG IV ONE (16:11)
[2019-11-25 16:52] LABS: TSH (Thyroid Stimulating Horm) 2.19 mcIU/mL (0.34-5.60)
[2019-11-25] MEDS ORDERED: Diltiazem IV push/loading dose 5 MG/ML 5 ML vial (25 mg) IV SLOW PU ONE (20:09)
[2019-11-25] MEDS ORDERED: Al Hydrox/Mg Hydrox/Simet LIQ 30 ML UDC PO PRN (20:50)
[2019-11-25] MEDS ORDERED: Senna TAB 8.6 mg TAB PO PRN (20:50)
[2019-11-26 06:34] LABS: CO2 Carbon Dioxide 15 mmol/L (22-32); Calcium 7.8 mg/dL (8.6-10.3); Sodium 137 mmol/L (135-145)
[2019-11-26 06:36] LABS: Anion Gap 8 mmol/L (2-11); Chloride 114 mmol/L (101-111)
[2019-11-26 06:39] LABS: BUN/Creatinine Ratio 21.3 (8-20); Blood Urea Nitrogen 16 mg/dL (6-24); EGFR African American 91.4 (>60); EGFR Non-African American 75.5 (>60); Glucose 80 mg/dL (70-100)
[2019-11-26 07:29] LABS: Magnesium 1.9 mg/dL (1.9-2.7); Potassium Redraw 4.5 mmol/L (3.5-5.0)
[2019-11-26 07:40] VITALS: BP 100/60
[2019-11-26] MEDS ORDERED: Multivitamins/Minerals TAB PO SCH (09:00)
[2019-11-26] MEDS ORDERED: Potassium Chlor 10 meq TAB PO SCH (18:00)
== END 2019-11-26 12:20 | disposition home or self-care (01) ==
LOC: ED 14:58 → INTOOBSV 20:50 → OBSVTOIN 20:50 → MEDTELE 20:50
PROVIDERS: ADMIT Physician Assistant; ATTEND Hospitalist